=== PATIENT | female | born 1985 | race Caucasian/White ===

== ENCOUNTER → 2016-11-26 | Outpatient (CLI) | payer BC ==
[2016-11-26 16:53] LABS: CHCM 33.8; HCT 34.5 % (34.0-46.0); HDW 2.25; HGB 11.9 gm/dL (11.4-16.0); MCH 32.7 pg (25.0-35.0); MCHC 34.5 g/dL (31.0-37.0); Mean Platelet Volume 7.4; RBC 3.64 m/uL (3.80-5.40); RDW 12.7 % (11.5-15.5); WBC 9.3 k/uL (3.8-10.6)
[2016-11-26 17:24] LABS: Glucose 83 mg/dL (74-99); Non-African American GFR(MDRD) >60 (>60 ml/min/1.73 sqM)
[2016-11-26 17:53] LABS: Hepatitis B Surface Ag Index 0.07
--- NOTE | 2016-11-26 20:31 | US ---
EXAMINATION TYPE: US OB <= 14 wk fetus DATE OF EXAM: 11/26/2016 4:31 PM COMPARISON: NONE CLINICAL HISTORY: Z36 CONFIRM DD. EXAM PERFORMED: Transabdominal (TA) EXAM MEASUREMENTS: GESTATIONAL AGE / DATING Physician Established: not yet established Dates by LMP: (8 weeks/2 days) EDC: 07/06/17 Dates by First Scan: 1st scan today Dates by Current Scan for: (8 weeks/5 days) EDC: 07/03/17 MATERNAL ANATOMY Uterus: 11.7 x 5.1 x 8.0 Right Ovary: obscured by overlying bowel gas Left Ovary: 2.4 x 1.3 x 1.3 Post CDS / Adnexa: wnl Presence of free fluid: wnl GESTATION / SURVEY CRL: 2.0 (8 weeks/5 days) Yolk Sac (normal less than 6mm): 3mm Heart Rate: 150 bpm IUP: Viable IUP Date of LMP: 09/29/16 Beta HcG (if available): not available Viable IUP, dates above. IMPRESSION: Single viable intrauterine .
[2016-11-27 07:39] LABS: HIV-1/HIV-2 Ab Screen NONREAC (NON REAC)
== END | disposition home or self-care (01) ==
LOC: RADUSWWP 16:01
PROVIDERS: ATTEND Obstetrics & Gynecology
DX: Z36 Encounter for antenatal screening of mother (principal); Z3A.08 8 weeks gestation of pregnancy; R53.83 Other fatigue
CPT/HCPCS: 76801; 82565; 82947; 85027; 86762; 86780; 86850; 86900; 86901; 87340; 87389

== ENCOUNTER 2016-12-21 20:04 | Emergency (ER) | payer BC ==
[2016-12-21] MEDS ORDERED: ALBUTEROL NEBULIZED 2.5 MG/3 ML INHALATION STA (21:16)
[2016-12-21 21:58] LABS: Basophils % (A) 1 %; CH 32.6; Eosinophils # (A) 0.1 k/uL (0-0.7); Eosinophils % (A) 1 %; HCT 39.7 % (34.0-46.0); HDW 2.27; HGB 13.2 gm/dL (11.4-16.0); Luc # (Auto) 0.14; Luc % (Auto) 2; Lymphocytes # (A) 1.6 k/uL (1.0-4.8); Lymphocytes % (A) 18 %; MCH 32.1 pg (25.0-35.0); MCHC 33.3 g/dL (31.0-37.0); MCV 96.5 fL (80.0-100.0); Mean Platelet Volume 6.7; Monocytes # (A) 0.3 k/uL (0-1.0); Monocytes % (A) 4 %; Neutrophils # (A) 6.4 k/uL (1.3-7.7); Neutrophils % (A) 75 %; RBC 4.11 m/uL (3.80-5.40); RDW 13.5 % (11.5-15.5); WBC 8.5 k/uL (3.8-10.6); WBC (Perox) 8.94
[2016-12-21 22:03] LABS: Anion Gap 9 mmol/L; Blood Urea Nitrogen 11 mg/dL (7-17); Calcium 9.4 mg/dL (8.4-10.2); Carbon Dioxide 22 mmol/L (22-30); Chloride 106 mmol/L (98-107); Glucose 83 mg/dL (74-99); Non-African American GFR(MDRD) >60 (>60 ml/min/1.73 sqM); Potassium 3.8 mmol/L (3.5-5.1); Sodium 137 mmol/L (137-145)
[2016-12-21] MEDS ORDERED: LORazepam 1 MG TAB PO STA (22:14)
--- NOTE | 2016-12-21 22:28 | ED ---
SOB HPI - General Chief Complaint: Shortness of Breath Stated Complaint: ROMÁN, 12 weeks preg Time Seen by Provider: 12/21/16 21:07 Source: patient, RN notes reviewed Mode of arrival: ambulatory Limitations: no limitations - History of Present Illness Initial Comments: This is a 31-year-old female chief complaint of difficulty breathing for approximately one day. Patient is currently 12 weeks . Patient reports that she's been under a lot of stress lately. She states that she has quit smoking inserted easily nicotine patch. Patient states that shortly after using the nicotine patch today she felt as if she cannot get a full breath of air. Patient states that she has no history of asthma. She denies any chest pain. She denies any nausea or vomiting or fever. PAtient states that she feels anxious. - Related Data Home Medications Medication Instructions Recorded Confirmed Pnv with Ca,No.72/Iron/FA 1 tab PO DAILY 12/21/16 12/21/16 [ Plus Tablet] Previous Rx's Medication Instructions Recorded LORazepam [Ativan] 0.5 mg PO BID #6 tab 12/21/16 Allergies Allergy/AdvReac Type Severity Reaction Status Date / Time Sulfa (Sulfonamide Allergy Rash/Hives Verified 12/21/16 20:32 Antibiotics) Review of Systems ROS Statement: Those systems with pertinent positive or pertinent negative responses have been documented in the HPI. ROS Other: All systems not noted in ROS Statement are negative. Past Medical History Past Medical History: No Reported History History of Any Multi-Drug Resistant Organisms: None Reported Past Surgical History: Section Past Psychological History: No Psychological Hx Reported Smoking Status: Former smoker Past Alcohol Use History: None Reported Past Drug Use History: None Reported General Exam - General Exam Comments Initial Comments: Well-appearing 31-year-old female. No distress. Limitations: no limitations General appearance: alert, in no apparent distress Head exam: Present: atraumatic, normocephalic, normal inspection Eye exam: Present: normal appearance, PERRL, EOMI. Absent: scleral icterus, conjunctival injection, periorbital swelling ENT exam: Present: normal exam, mucous membranes moist Neck exam: Present: normal inspection. Absent: tenderness, meningismus, lymphadenopathy Respiratory exam: Present: normal lung sounds bilaterally. Absent: respiratory distress, wheezes, rales, rhonchi, stridor Cardiovascular Exam: Present: regular rate, normal rhythm, normal heart sounds. Absent: systolic murmur, diastolic murmur, rubs, gallop, clicks GI/Abdominal exam: Present: soft, normal bowel sounds. Absent: distended, tenderness, guarding, rebound, rigid Extremities exam: Present: normal inspection, full ROM, normal capillary refill. Absent: tenderness, pedal edema, joint swelling, calf tenderness Back exam: Present: normal inspection Neurological exam: Present: alert, oriented X3, CN II-XII intact Psychiatric exam: Present: normal affect, normal mood, anxious Skin exam: Present: warm, dry, intact, normal color. Absent: rash Course Vital Signs 12/21/16 12/21/16 12/21/16 20:29 21:57 22:07 Temperature 99.4 F Pulse Rate 91 91 91 Respiratory 20 Rate Blood Pressure 159/86 O2 Sat by Pulse 100 Oximetry 12/21/16 22:38 Temperature 98.2 F Pulse Rate 87 Respiratory 18 Rate Blood Pressure 106/68 O2 Sat by Pulse 100 Oximetry Medical Decision Making - Medical Decision Making This is a 31-year-old female chief complaint of difficulty breathing for approximately one day. Patient is currently 12 weeks . Patient reports that she's been under a lot of stress lately. She states that she has quit smoking inserted easily nicotine patch. Patient states that shortly after using the nicotine patch today she felt as if she cannot get a full breath of air. Patient states that she has no history of asthma. She denies any chest pain. She denies any nausea or vomiting or fever. PAtient states that she feels anxious. Patient lungs are CTA, no wheezing. PAtient does not appear in respiratory distress. Given albuterol breathing treatment with no relief. PAtient continues to report anxiety. Given .5 mg lorazepam and patient states that she is feeling somewhat better. Lab work reviewed and negative, negative D dimer. Discussed following up with PCP on Friday. Discussed can give her a few ativan for anxiety until she can follow up with PCP. Discussed addictive properties of the medication, only to be used as last resort. - Lab Data Result diagrams: 12/21/16 21:40 12/21/16 21:40 Lab Results 12/21/16 12/21/16 12/21/16 Range/Units 21:40 21:40 21:40 WBC 8.5 (3.8-10.6) k/uL RBC 4.11 (3.80-5.40) m/uL Hgb 13.2 (11.4-16.0) gm/dL Hct 39.7 (34.0-46.0) % MCV 96.5 (80.0-100.0) fL MCH 32.1 (25.0-35.0) pg MCHC 33.3 (31.0-37.0) g/dL RDW 13.5 (11.5-15.5) % Plt Count 304 (150-450) k/uL Neutrophils % 75 % Lymphocytes % 18 % Monocytes % 4 % Eosinophils % 1 % Basophils % 1 % Neutrophils # 6.4 (1.3-7.7) k/uL Lymphocytes # 1.6 (1.0-4.8) k/uL Monocytes # 0.3 (0-1.0) k/uL Eosinophils # 0.1 (0-0.7) k/uL Basophils # 0.0 (0-0.2) k/uL D-Dimer 0.41 (<0.60) mg/L FEU Sodium 137 (137-145) mmol/L Potassium 3.8 (3.5-5.1) mmol/L Chloride 106 (98-107) mmol/L Carbon Dioxide 22 (22-30) mmol/L Anion Gap 9 mmol/L BUN 11 (7-17) mg/dL Creatinine 0.49 L (0.52-1.04) mg/dL Est GFR (MDRD) Af Amer >60 (>60 ml/min/1.73 sqM) Est GFR (MDRD) Non-Af >60 (>60 ml/min/1.73 sqM) Glucose 83 (74-99) mg/dL Calcium 9.4 (8.4-10.2) mg/dL Disposition Clinical Impression: Anxiety, Shortness of breath due to Disposition: HOME SELF-CARE Condition: Good Instructions: Dyspnea (ED) Additional Instructions: Patient has follow-up with Dr. Palafox on Friday. Return to the emergency department if any alarming signs or symptoms occur. Prescriptions: LORazepam [Ativan] 0.5 mg PO BID #6 tab Referrals: Minal Palafox DO [Primary Care Provider] - 1-2 days Terence Hobbs MD [STAFF PHYSICIAN] - 1-2 days Time of Disposition: 22:58
[2016-12-21 22:39] VITALS: BP 106/68; PULSE 87; RESP 18; TEMP 98.2
== END 2016-12-21 23:10 | disposition home or self-care (01) ==
LOC: EC 20:04
DX: O99.89 Other specified diseases and conditions complicating pregnancy, childbirth and the puerperium (principal); R06.02 Shortness of breath; O99.341 Other mental disorders complicating pregnancy, first trimester; F41.9 Anxiety disorder, unspecified; Z3A.12 12 weeks gestation of pregnancy; Z87.891 Personal history of nicotine dependence; Z79.899 Other long term (current) drug therapy; Z88.2 Allergy status to sulfonamides
CPT/HCPCS: 36415; 80048; 85025; 85379; 94640; 99284

== ENCOUNTER → 2017-02-10 | Outpatient (CLI) | payer OTHER ==
--- NOTE | 2017-02-11 16:17 | US ---
EXAMINATION TYPE: US OB anatomy transabd DATE OF EXAM: 02/10/2017 COMPARISON: NONE HISTORY: O36.62X0 Large for dates Anatomy Scan TECHNIQUE: Transabdominal (TA) EXAM MEASUREMENTS: GESTATIONAL AGE / DATING Physician Established: (19 weeks/1 days) EDC: 07/06/17 Dates by LMP: (19 weeks/1 days) EDC: 07/06/17 Dates by First Scan: (19 weeks/4 days) EDC: 07/03/17 Dates by Current Scan for: (20 weeks/2 days) EDC: 06/28/2017 SURVEY IUP: Single PLACENTA: Anterior PREVIA: No previa YOLIS: 13.8 cm Normal CERVICAL LENGTH (transabdominal: norm > 3.0cm): 3.3 cm BIOMETRY PRESENTATION: Vertex BPD: 4.7 cm 20 weeks / 2 days HC: 17.9 cm 20 weeks / 3 days AC: 14.7 cm 20 weeks / 0 days FL: 3.2 cm 20 weeks / 0 days ESTIMATED WEIGHT IN GRAMS: 327 grams ESTIMATED WEIGHT IN LBS/OZS: 0 lbs. 12 oz. WEIGHT PERCENTAGE BASED ON ESTABLISHED DATE: 91 % HC/AC: 1.2 Normal FL/AC: 22 HEART RATE: 143 bpm RHYTHM: Normal ANATOMY SEEN (within normal limits): * Lateral Vent (< 1 cm) 0.7 cm * Cisterna Magna (< 1.1 cm) 0.3 cm * Nuchal Fold (< 0.6 cm) 0.3 cm * Cerebellum (varies with age) 2.0 cm Choroid Plexus (bilateral) Midline Falx Cavus Septi Pellucidi Four Chamber Heart Outflow tracts: LVOT/RVOT Stomach- Appeared prominent Situs Nose / Lips Diaphragm Kidneys (bilateral) Bladder Cord Insert Three Vessel Cord Longitudinal Spine Transverse Spine Arms (bilateral) Legs (bilateral) Single, viable IUP, Growth parameters appeared wnl/ Stomach prominent during exam, otherwise no abn ormality was visualized Impressions: 1. Single intrauterine gestation estimated at 20 weeks 2 days gestation based on current ultrasound m easurements. This would have a calculated EDC of 06/28/2017. Correlate this with her physician establ alvaro EDC of 07/06/2017. 2. Cardiac activity measures 143 bpm. 3. Note is made of some prominent stomach during the exam.
== END | disposition home or self-care (01) ==
LOC: RADUSWWP 15:34
PROVIDERS: ATTEND Obstetrics & Gynecology
DX: O36.62X0 Maternal care for excessive fetal growth, second trimester, not applicable or unspecified (principal); Z3A.19 19 weeks gestation of pregnancy
CPT/HCPCS: 76811

== ENCOUNTER → 2017-03-29 | Outpatient (CLI) | payer OTHER ==
[2017-03-29 11:39] LABS: CH 32.5; CHCM 33.2; HCT 36.5 % (34.0-46.0); HGB 12.2 gm/dL (11.4-16.0); MCHC 33.5 g/dL (31.0-37.0); MCV 98.5 fL (80.0-100.0); Mean Platelet Volume 7.7; RBC 3.71 m/uL (3.80-5.40); RDW 13.7 % (11.5-15.5); WBC 9.8 k/uL (3.8-10.6)
== END | disposition home or self-care (01) ==
LOC: LABWHC1 10:28
PROVIDERS: ATTEND Obstetrics & Gynecology
DX: Z34.92 Encounter for supervision of normal pregnancy, unspecified, second trimester (principal); Z3A.00 Weeks of gestation of pregnancy not specified
CPT/HCPCS: 36415; 82950; 85027

== ENCOUNTER → 2017-04-02 | Outpatient (CLI) | payer OTHER ==
[2017-04-02 11:56] LABS: Glucose 3 Hour, Gest 96 mg/dL
== END | disposition home or self-care (01) ==
LOC: LABWHC1 08:03
PROVIDERS: ATTEND Obstetrics & Gynecology
DX: O99.810 Abnormal glucose complicating pregnancy (principal); Z3A.00 Weeks of gestation of pregnancy not specified
CPT/HCPCS: 36415; 82951; 82952

== ENCOUNTER 2017-04-28 12:20 | Outpatient (CLI) | payer OTHER ==
[2017-04-28 13:13] VITALS: BP 113/76; PULSE 95; RESP 18; TEMP 98
[2017-04-28 13:32] LABS: Appearance,Urine Clear (Clear); Bilirubin,Urine Negative (Negative); Glucose,Urine (UA) Negative (Negative); Ketones,Urine Trace (Negative); Leukocyte Esterase,Urine Negative (Negative); Nitrite,Urine Negative (Negative); PH, Urine 6.5 (5.0-8.0); Protein,Urine Negative (Negative); Specific Gravity,Urine 1.017 (1.001-1.035); UA Billing (MACRO vs. MICRO) CHEM; Urobilinogen,Urine <2.0 mg/dL (<2.0)
--- NOTE | 2017-04-28 18:08 | P.MSEPDOC ---
Presenting Problems - Arrival Data Date of Arrival on Unit: 04/28/17 Time of Arrival on Unit: 12:20 Mode of Transport: Ambulatory - Complaint OB-Reason for Admission/Chief Complaint: Rule Out PROM Medical History - Information : 3 Para: 1 Term: 1 : 0 Abortions: Spontaneous or Elective: 1 Number of Living Children: 1 - Gestational Age Expected Date of Delivery: 07/06/17 Gestational Age by JOSE A (wks/days): 30 Weeks and 1 Days Review of Systems - Review of Systems Constitutional: No problems Breast: No problems ENT: No problems Cardiovascular: No problems Respiratory: No problems Gastrointestinal: No problems Genitourinary: Urgency, Increased frequency Musculoskeletal: No problems Neurological: Dizziness Skin: No problems Vital Signs - Temperature Temperature: 98.0 F Temperature Source: Oral - Pulse Pulse Oximetery Pulse Rate: 95 Pulse Assessment Method: Automatic Cuff - Respirations Respiratory Rate: 18 Oxygen Delivery Method: Room Air O2 Sat by Pulse Oximetry: 96 - Blood Pressure Right Arm Blood Pressure: 113/76 Blood Pressure Mean: 88 Blood Pressure Source: Automatic Cuff Medical Screen Scoring (Pre) - Cervical Exam Dilation: Exam Deferred Effacement: Exam Deferred - Uterine Contractions Frequency: N/A - Maternal Vital Signs Maternal Temperature: N/A Maternal Blood Pressure: N/A Signs of Preeclampsia: N/A Maternal Respirations: N/A - Maternal Trauma Maternal Trauma: N/A - Assessment Baseline FHR: 120 Heart Rate - NICHD Category: Category I (Normal) = 0 NST: Reactive Position: N/A Station: N/A - Total Score Total Score (Pre): 0 - Level of Risk Level of Risk: Low (0-5) Physician Notification (Pre) - Physician Notified Physician Notified Date: 04/28/17 Physician Notified Time: 13:12 Physician/Practitioner Notifed:: Dr Hobbs Spoke With: Dr Hobbs New Order Received: Yes - Notification Comment Comment: Send a U/A and culture, may discharge home, call with results. Amnisure results were negative Disposition - Disposition OB Disposition: Discharge to home Discharge Date: 04/28/17 Discharge Time: 13:12 I agree with the RN Medical Screening Exam: Yes Risk & Benefit of care provided described in d/c instruction: Yes Diagnosis: PELVIC AND PERINEAL PAIN
== END 2017-04-28 13:20 | disposition home or self-care (01) ==
LOC: FBPOP 12:20
PROVIDERS: ATTEND Obstetrics & Gynecology
DX: O99.89 Other specified diseases and conditions complicating pregnancy, childbirth and the puerperium (principal); R10.2 Pelvic and perineal pain; Z3A.30 30 weeks gestation of pregnancy
CPT/HCPCS: 81003; 84112; 87086; 99213

== ENCOUNTER 2017-06-13 10:27 | Outpatient (CLI) | payer OTHER ==
[2017-06-13 11:16] LABS: Appearance,Urine Cloudy (Clear); Bacteria,Urine Occasional /hpf; Bilirubin,Urine Negative (Negative); Calcium Oxalate Crystals,Urine Occasional /hpf; Glucose,Urine (UA) Negative (Negative); Ketones,Urine Negative (Negative); Leukocyte Esterase,Urine Small (Negative); Mucus,Urine Rare /hpf; Nitrite,Urine Negative (Negative); Particle Count 6403; Protein,Urine Trace (Negative); RBC,Urine 3 /hpf (0-5); Specific Gravity,Urine 1.017 (1.001-1.035); Squamous Epithelial Cell,Urine 4 /hpf (0-4); UA Billing (MACRO vs. MICRO) MICRO; WBC,Urine 6 /hpf (0-5)
[2017-06-13 11:19] VITALS: BP 118/69; PULSE 106; RESP 16; TEMP 96.6
--- NOTE | 2017-07-02 08:06 | P.MSEPDOC ---
Presenting Problems - Arrival Data Date of Arrival on Unit: 06/13/17 Time of Arrival on Unit: 10:31 Mode of Transport: Ambulatory - Complaint OB-Reason for Admission/Chief Complaint: Pain Comment: back pain cramping dizziness bladder pressure Medical History - Information : 3 Para: 1 Term: 1 : 0 Abortions: Spontaneous or Elective: 1 Number of Living Children: 1 - Gestational Age Gestational Age by JOSE A (wks/days): 36 Weeks and 5 Days - History Complications: Prior Review of Systems - Review of Systems Constitutional: No problems Breast: No problems ENT: No problems Cardiovascular: No problems Respiratory: No problems Gastrointestinal: No problems Genitourinary: No problems Musculoskeletal: No problems Neurological: No problems Skin: No problems Vital Signs - Temperature Temperature: 96.6 F Temperature Source: Temporal Artery Scan - Pulse Right Brachial Pulse Rate: 106 Pulse Assessment Method: Automatic Cuff - Respirations Respiratory Rate: 16 Oxygen Delivery Method: Room Air O2 Sat by Pulse Oximetry: 96 - Blood Pressure Right Arm Blood Pressure: 118/69 Blood Pressure Mean: 85 Blood Pressure Source: Automatic Cuff Medical Screen Scoring (Pre) - Cervical Exam Dilation: 0 cm = 0 Membranes: Intact - Uterine Contractions Frequency: > 5 minutes apart = 1 Duration: N/A Intensity: N/A - Maternal Vital Signs Maternal Temperature: N/A Maternal Blood Pressure: N/A Signs of Preeclampsia: N/A Maternal Respirations: N/A - Maternal Trauma Maternal Trauma: N/A - Assessment Baseline FHR: 130 Heart Rate - NICHD Category: Category I (Normal) = 0 NST: Reactive Position: N/A Station: N/A - Total Score Total Score (Pre): 1 - Level of Risk Level of Risk: N/A Medical Screen Scoring (Post) - Cervical Exam Dilation: 0 cm = 0 Membranes: Intact - Uterine Contractions Frequency: > 5 minutes apart = 1 Duration: N/A - Maternal Vital Signs Maternal Temperature: N/A Signs of Preeclampsia: N/A Maternal Respirations: N/A - Maternal Trauma Maternal Trauma: N/A - Assessment Heart Rate: 130 Heart Rate - NICHD Category: Category I (Normal) = 0 NST: Reactive Position: N/A Station: N/A - Total Score Total Score (Post): 1 - Post Treatment Level of Risk Post Treatment Level of Risk: Low (0-5) Physician Notification (Post) - Physician Notified Physician Notified Date: 06/13/17 Physician Notified Time: 11:30 Physician/Practitioner Notified:: Dr Robert Spoke With: Dr Robert New Order Received: Yes (urine culture) Disposition - Disposition OB Disposition: Discharge to home Discharge Date: 06/13/17 Discharge Time: 11:39 I agree with the RN Medical Screening Exam: Yes Risk & Benefit of care provided described in d/c instruction: Yes Diagnosis: PELVIC AND PERINEAL PAIN
== END 2017-06-13 11:55 | disposition home or self-care (01) ==
LOC: FBPOP 10:27
PROVIDERS: ATTEND Obstetrics & Gynecology
DX: O99.89 Other specified diseases and conditions complicating pregnancy, childbirth and the puerperium (principal); R10.2 Pelvic and perineal pain
CPT/HCPCS: 59025; 81001; 84112; 87086; 99213

== ENCOUNTER 2017-07-02 01:00 | Inpatient (IN) | payer OTHER ==
[2017-07-02] MEDS ORDERED: CITRIC ACID-SODIUM CITRATE 15 ML CUP PO ONE (01:21)
[2017-07-02] MEDS ORDERED: LACTATED RINGERS 1,000 ML IV ONE (01:21)
[2017-07-02] MEDS ORDERED: ceFAZolin 2 GM in SODIUM CHLORIDE 0.9% 100 ML IVPB ONE (01:24)
[2017-07-02 01:51] LABS: Basophils % (A) 0 %; CH 31.7; CHCM 33.5; Eosinophils # (A) 0.2 k/uL (0-0.7); Eosinophils % (A) 1 %; HDW 2.42; HGB 13.1 gm/dL (11.4-16.0); Luc # (Auto) 0.14; Luc % (Auto) 1; Lymphocytes # (A) 1.6 k/uL (1.0-4.8); Lymphocytes % (A) 16 %; MCH 31.1 pg (25.0-35.0); MCHC 32.6 g/dL (31.0-37.0); MCV 95.3 fL (80.0-100.0); Mean Platelet Volume 8.8; Monocytes # (A) 0.5 k/uL (0-1.0); Monocytes % (A) 5 %; Neutrophils # (A) 7.8 k/uL (1.3-7.7); Neutrophils % (A) 76 %; RDW 14.3 % (11.5-15.5); WBC 10.2 k/uL (3.8-10.6)
[2017-07-02] MEDS ORDERED: MORPHINE SULFATE (PF) 0.3 MG/0.3 ML SYR ONE (02:05)
[2017-07-02] MEDS ORDERED: ONDANSETRON 4 MG/2 ML VIAL ONE (02:05)
[2017-07-02] MEDS ORDERED: PHENYLEPHRINE-0.9% NACL SYG 1 MG/10 ML SYRINGE ONE (02:05)
[2017-07-02] MEDS ORDERED: OXYTOCIN 10 UNIT/ML 1 ML VIAL ONE (02:05)
[2017-07-02] MEDS ORDERED: NALBUPHINE 10 MG/ML AMPUL ONE (02:05)
[2017-07-02] MEDS ORDERED: FAMOTIDINE 20 MG/2 ML VIAL ONE (02:05)
[2017-07-02] MEDS ORDERED: KETOROLAC 30 MG/ML 1 ML VIAL ONE (02:05)
[2017-07-02] MEDS ORDERED: diphenhydrAMINE 50 MG/ML 1 ML VIAL IVP PRN ×3 (02:43→02:52)
[2017-07-02] MEDS ORDERED: diphenhydrAMINE 50 MG CAP PO PRN (02:43)
[2017-07-02] MEDS ORDERED: ACETAMINOPHEN TAB 325 MG TAB PO PRN (02:43)
[2017-07-02] MEDS ORDERED: NALOXONE 0.4 MG/ML 1 ML VIAL IV PRN ×2 (02:43→02:52)
[2017-07-02] MEDS ORDERED: ONDANSETRON 4 MG/2 ML VIAL IVP PRN ×2 (02:43→02:52)
[2017-07-02] MEDS ORDERED: diphenhydrAMINE 25 MG CAP PO PRN (02:43)
[2017-07-02] MEDS ORDERED: ZOLPIDEM 5 MG TAB PO PRN (02:43)
[2017-07-02] MEDS ORDERED: KETOROLAC 30 MG/ML 1 ML VIAL IVP PRN ×2 (02:43→02:52)
[2017-07-02] MEDS ORDERED: Acetaminophen-Codeine 300-30mg TAB PO PRN (02:43)
[2017-07-02] MEDS ORDERED: METOCLOPRAMIDE 5 MG/ML 2 ML VIAL IVP PRN (02:43)
[2017-07-02] MEDS ORDERED: SIMETHICONE 80 MG CHEWABLE PO PRN (02:43)
--- NOTE | 2017-07-02 02:46 | P.HPOB ---
History of Present Illness H&P Date: 07/02/17 Chief Complaint: Intrauterine at 39 weeks: Prior section: Active labor Patient is a 32-year-old at 39 weeks 3 days gestation arrives following rupture of membranes with contractions. She is dilated to 3-4 cm in and is in active labor. She is having contractions every approximately 3 minutes. Due to above and scheduled prior we'll plan repeat this morning. Her course has been essentially unremarkable and she is feeling well at this time her vital signs are stable and afebrile. Heart regular, lungs clear, extremities without pain. Osteopathic exams unremarkable. Pertinent labs could A+ blood type Rh antibody was negative, rubella immune, hepatitis B surface antigen and RPR were negative. She is scheduled for a repeat low transverse section with bilateral partial salpingectomy for family planning for permanent sterilization. Risks/benefits and alternatives were discussed with the patient by Dr. Prabhakar previously and reviewed by me. Past Medical History Past Medical History: No Reported History History of Any Multi-Drug Resistant Organisms: None Reported Past Surgical History: Section Smoking Status: Former smoker Medications and Allergies Home Medications Medication Instructions Recorded Confirmed Type Calcium Carbonate [Tums] 2,000 mg PO DIRECTED PRN MDD 06/26/17 07/02/17 History takes 2-4 tabs Pnv No.95/Ferrous Fum/Folic AC 1 each PO DAILY 06/26/17 07/02/17 History [ Multivitamin Tablet] Allergies Allergy/AdvReac Type Severity Reaction Status Date / Time Sulfa (Sulfonamide Allergy muscle Verified 07/02/17 01:12 Antibiotics) cramps Exam Osteopathic Statement: *. No significant issues noted on an osteopathic structural exam other than those noted in the History and Physical/Consult. - Vital Signs Vital signs: Intake and Output 07/01/17 07/01/17 07/02/17 14:59 22:59 06:59 Other: Weight 73.482 kg Patient Weight 07/02/17 06:59 Weight 73.482 kg Results Result Diagrams: 07/02/17 01:35 Abnormal Lab Results - Last 24 Hours (Table) 07/02/17 Range/Units 01:35 Neutrophils # 7.8 H (1.3-7.7) k/uL
[2017-07-02] MEDS ORDERED: MORPHINE SULFATE 4 MG/ML SYRINGE IVP PRN (02:52)
--- NOTE | 2017-07-02 02:52 | P.OP ---
Date of Procedure: 07/02/17 Preoperative Diagnosis: Intrauterine at 39 weeks: Family planning: Prior section: Active labor Postoperative Diagnosis: Same Procedure(s) Performed: Repeat low transverse section with bilateral partial salpingectomy. Anesthesia: spinal Surgeon: Dmitry Ibarra Reverse Engineer #1: Meghan Crawford Estimated Blood Loss (ml): 500 IV fluids (ml): 800 Urine output (ml): 200 Pathology: other (placenta) Condition: stable Disposition: floor Operative Findings: Male scores of 9 and 9 at one and 5 minutes respectively and weight of 9 lbs. 9 oz. Description of Procedure: Patient was taken to the operating suite where a spinal anesthetic was found be adequate. She was prepped and draped in the normal sterile fashion and placed in dorsal supine position with leftward tilt. Initially a Pfannenstiel skin incision was made and this incision was then carried through to the underlying layer of the fascia with a second knife. Fascia was then nicked in the midline and this opening was extended laterally with Restrepo scissors. Superior and inferior aspect of this incision were then grasped tented up and bluntly and sharply dissected off the rectus muscles. Muscles were then divided in the midline and blunt dissection through the peritoneum was made. This opening was then extended superiorly and inferiorly with good visualization of both bowel bladder. Bladder blade was then placed bladder flap was identified and entered with Metzenbaum scissors and this opening was carried across face the uterus with Metzenbaum scissors and a bladder flap was digitally created. Knife was then used to incise uterus was fully developed through with a hemostat and extended bluntly. Head was then H medically delivered mouth nares bulb suctioned anterior posterior shoulders delivered with gentle downward and upper traction followed by the remainder the baby. Umbilical cord was then clamped cut usual fashion an nursery personnel was present to assume care. Placenta was then delivered intact and Pitocin was added to the IV. Uterus was then exteriorized cleared of clots and debris and closed in 1 layer with 0 Vicryl suture. Once excellent hemostasis was obtained attention was turned to the fallopian tubes where both the right and left tube had a hemostat grasped 2 cm from uterine cornu and a window was created in the mesosalpinx. 2 proximal and 2 distal 2-0 silk sutures were then used to occlude the fallopian tubes and intervening segments were excised and tips were cauterized. Once this was accomplished blood and debris was suctioned from the posterior cul-de-sac and the uterus was reinserted into the abdomen. Peritoneal layer was then reapproximated with 0 Vicryl fascial layer was closed with 0 Vicryl one layer of 3-0 Vicryl was placed in deep subcuticular tissues reapproximate the skin and then the skin was closed with marifer. Sponge, lap, needle counts were all correct 2. Patient was then taken to the recovery room in stable and satisfactory condition.
[2017-07-02] MEDS: LACTATED RINGERS 1,000 ML IV SCH ×2 (03:54→12:19)
--- NOTE | 2017-07-02 08:29 | P.MSEPDOC ---
Presenting Problems - Arrival Data Date of Arrival on Unit: 07/02/17 Time of Arrival on Unit: 01:30 Mode of Transport: Bed - Complaint OB-Reason for Admission/Chief Complaint: Rule Out SROM Comment: SROM @ 0030 Medical History - Information : 3 Para: 1 Term: 1 : 0 Abortions: Spontaneous or Elective: 1 Number of Living Children: 1 - Gestational Age Gestational Age by JOSE A (wks/days): 39 Weeks and 3 Days Review of Systems - Review of Systems Constitutional: No problems Breast: No problems ENT: No problems Cardiovascular: No problems Respiratory: No problems Gastrointestinal: No problems Genitourinary: No problems Musculoskeletal: No problems Neurological: No problems Skin: No problems Vital Signs - Temperature Temperature: 97.5 F Temperature Source: Temporal Artery Scan - Pulse Left Brachial Pulse Rate: 81 Pulse Assessment Method: Automatic Cuff - Respirations Respiratory Rate: 16 Oxygen Delivery Method: Room Air O2 Sat by Pulse Oximetry: 96 - Blood Pressure Left Arm Blood Pressure: 105/63 Blood Pressure Mean: 77 Blood Pressure Source: Automatic Cuff Medical Screen Scoring (Pre) - Cervical Exam Dilation: 1-3 cm = 1 Effacement: More than 50% = 2 Membranes: Ruptured = 3 - Uterine Contractions Frequency: Scheduled / = 6 Duration: > 40 seconds = 2 Intensity: N/A - Maternal Vital Signs Maternal Temperature: N/A Maternal Blood Pressure: N/A Signs of Preeclampsia: N/A - Maternal Trauma Maternal Trauma: N/A - Assessment Baseline FHR: 115 Heart Rate - NICHD Category: Category I (Normal) = 0 NST: Reactive Position: N/A - Total Score Total Score (Pre): 14 - Level of Risk Level of Risk: High (10+) Physician Notification (Pre) - Physician Notified Physician Notified Date: 07/02/17 Physician Notified Time: 01:20 Physician/Practitioner Notifed:: Dr. Ibarra Spoke With: Dr. Ibarra New Order Received: Yes Disposition - Disposition OB Disposition: Admit, LDRP Suite I agree with the RN Medical Screening Exam: Yes Risk & Benefit of care provided described in d/c instruction: Yes Diagnosis: FULL-TERM JONATAN ROM, UNSP TIME BETW RUPTURE AND ONSET LABOR
[2017-07-02] MEDS: SENNOSIDES-DOCUSATE SODIUM 1 EACH TAB PO SCH ×2 (09:07→20:20)
--- NOTE | 2017-07-03 06:31 | P.PNOBGPC ---
Subjective - Subjective Patient reports: Reports appetite normal, Reports voiding normally, Reports pain well controlled, Reports ambulating normally : doing well Objective - Vital Signs Latest vital signs: Vital Signs Temp Pulse Resp BP BP Pulse Ox 07/03/17 04:00 98.7 F 75 18 102/56 07/03/17 00:00 98.1 F 78 18 07/02/17 20:00 97.8 F 80 18 99/58 07/02/17 18:21 16 07/02/17 17:00 16 07/02/17 16:00 98 F 75 14 100/67 07/02/17 15:00 16 07/02/17 13:00 16 96 07/02/17 12:00 98 F 73 16 115/70 96 07/02/17 11:00 16 07/02/17 09:00 16 95 07/02/17 08:29 97.5 F L 81 16 105/63 96 07/02/17 08:00 98.0 F 75 16 111/75 07/02/17 07:00 16 Intake and Output 07/02/17 07/02/17 07/03/17 14:59 22:59 06:59 Intake Total 1000 Output Total 900 1000 Balance 100 -1000 Intake: IV 1000 Lactated Ringers 1,000 ml 1000 @ 125 mls/hr IV .Q8H [facility] Rx#:[id number] Output: Urine 900 1000 Uretheral (Berger) 450 Other: Voiding Method Indwelling Catheter Indwelling Catheter # Voids 2 - Exam Lungs: bilateral: normal Chest: Normal S1, Normal S2 Extremities: Present: normal Abdomen: Present: normal appearance, soft. Absent: distention, tenderness Incision: Present: normal, dry, intact Uterus: Present: normal, firm Assessment and Plan (1) delivery delivered Narrative/Plan: Post operative day #1. Patient is resting without complaints. Vital signs are stable and she is afebrile. Uterus is firm nontender and her incision is intact and dry. CBC is pending at time of this dictation. My impression this is a normal postoperative course. Plan is to continue routine care, check a CBC, allow the patient to shower, and most likely discharge home tomorrow. Current Visit: Yes Status: Acute Code(s): O82 - ENCOUNTER FOR DELIVERY WITHOUT INDICATION SNOMED Code(s): 310208257
[2017-07-03 07:29] LABS: Basophils % (A) 0 %; CH 32.6; CHCM 33.4; Eosinophils # (A) 0.1 k/uL (0-0.7); Eosinophils % (A) 1 %; HCT 35.3 % (34.0-46.0); HDW 2.49; HGB 11.4 gm/dL (11.4-16.0); Luc # (Auto) 0.11; Luc % (Auto) 1; Lymphocytes # (A) 1.4 k/uL (1.0-4.8); Lymphocytes % (A) 13 %; MCH 31.9 pg (25.0-35.0); MCHC 32.4 g/dL (31.0-37.0); MCV 98.2 fL (80.0-100.0); Mean Platelet Volume 8.9; Monocytes # (A) 0.5 k/uL (0-1.0); Monocytes % (A) 4 %; Neutrophils # (A) 8.8 k/uL (1.3-7.7); Neutrophils % (A) 80 %; RBC 3.59 m/uL (3.80-5.40); RDW 13.5 % (11.5-15.5); WBC (Perox) 10.89
[2017-07-03] MEDS: SENNOSIDES-DOCUSATE SODIUM 1 EACH TAB PO SCH ×2 (09:41→20:22)
[2017-07-03] MEDS: IBUPROFEN 600 MG TAB PO PRN ×2 (09:41→15:28)
--- NOTE | 2017-07-03 09:48 | P.PN ---
Progress Note - Text Progress Note Date: 07/03/17 32-year-old female status post with spinal Duramorph patient sitting in bed comfortable is no complaints no headache no itching no nausea no vomiting
[2017-07-03] MEDS: Acetaminophen-Codeine 300-30mg TAB PO PRN ×2 (11:31→20:56)
[2017-07-04] MEDS: IBUPROFEN 600 MG TAB PO PRN ×2 (03:17→08:35)
[2017-07-04] MEDS ORDERED: DIPH,PERTUS(ACELL)TETVAC-LF 0.5 ML VIAL IM ONE (05:48)
--- NOTE | 2017-07-04 06:07 | P.PNOBGPC ---
Subjective - Subjective Patient reports: Reports appetite normal, Reports voiding normally, Reports pain well controlled, Reports ambulating normally : doing well Objective - Vital Signs Latest vital signs: Vital Signs Temp Pulse Resp BP Pulse Ox 07/04/17 00:00 98.2 F 68 18 117/40 07/03/17 15:18 97.8 F 83 18 107/60 97 07/03/17 09:00 98.3 F 82 16 120/64 98 Intake and Output 07/03/17 07/03/17 07/04/17 14:59 22:59 06:59 Other: Voiding Method Indwelling Catheter - Exam Lungs: bilateral: normal Chest: Normal S1, Normal S2 Extremities: Present: normal Abdomen: Present: normal appearance, soft. Absent: distention, tenderness Incision: Present: normal, dry, intact Uterus: Present: normal, firm - Labs Labs: Abnormal Lab Results - Last 24 Hours (Table) 07/03/17 Range/Units 07:18 WBC 11.0 H (3.8-10.6) k/uL RBC 3.59 L (3.80-5.40) m/uL Neutrophils # 8.8 H (1.3-7.7) k/uL Assessment and Plan Assessment: Post operative day #2. Patient is resting without complaints. Vital signs are stable and she is afebrile. Her incision is intact and dry. Patient's ambulating and urinating without difficulty and tolerating regular diet. Patient wishes to go home. My impression this is a normal postoperative course. Plan is to continue routine postoperative care discharge home later today. (1) delivery delivered Current Visit: Yes Status: Acute Code(s): O82 - ENCOUNTER FOR DELIVERY WITHOUT INDICATION SNOMED Code(s): 847483002
--- NOTE | 2017-07-04 06:12 | P.DS ---
Providers Date of admission: 07/02/17 01:34 Expected date of discharge: 07/04/17 Attending physician: Terence Hobbs Primary care physician: Stated None - Discharge Diagnosis(es) (1) delivery delivered Current Visit: Yes Status: Acute Hospital Course: Please see dictated H&P for intimate details of this patient's admission. Brief summary this is a pleasant 32-year-old 3 para 1 female 39-3/7 weeks gestation with a scheduled repeat section who presented in labor. Patient underwent a repeat low transverse section and tubal ligation. Please see dictated operative note. Postoperative and 2 patient's felt be stable for discharge home follow up with me in 1 week for an incision check. Procedures: Repeat low transverse section and tubal ligation Patient Condition at Discharge: Good Plan - Discharge Summary New Discharge Prescriptions: New Acetaminophen-Codeine 300-30mg [Tylenol w/codeine #3] 1 - 2 each PO Q4HR PRN #30 tab PRN Reason: Mild Pain Ibuprofen [Motrin] 600 mg PO Q6HR PRN #40 tab PRN Reason: Mild Pain Or Fever >= 100.5 No Action Pnv No.95/Ferrous Fum/Folic AC [ Multivitamin Tablet] 1 each PO DAILY Calcium Carbonate [Tums] 2,000 mg PO DIRECTED PRN MDD takes 2-4 tabs PRN Reason: Heartburn Discharge Medication List Calcium Carbonate [Tums] 2,000 mg PO DIRECTED PRN MDD takes 2-4 tabs [History] Pnv No.95/Ferrous Fum/Folic AC [ Multivitamin Tablet] 1 each PO DAILY [History] Acetaminophen-Codeine 300-30mg [Tylenol w/codeine #3] 1 - 2 each PO Q4HR PRN # 30 tab 07/04/17 [Rx] Ibuprofen [Motrin] 600 mg PO Q6HR PRN #40 tab 07/04/17 [Rx] Follow up Appointment(s)/Referral(s): Terence Hobbs MD [STAFF PHYSICIAN] - 08/14/17 9:45 am (Please see me in 1 week for an incision check.) Patient Instructions/Handouts: (DC) Activity/Diet/Wound Care/Special Instructions: No heavy lifting or intercourse for 6 weeks. Please call if any fever, chills, excessive vaginal bleeding, and/or abdominal pain. Discharge Disposition: HOME SELF-CARE
[2017-07-04] MEDS: SENNOSIDES-DOCUSATE SODIUM 1 EACH TAB PO SCH (08:36)
[2017-07-04 08:42] VITALS: BP 128/76; PULSE 80; RESP 16; TEMP 98
== END 2017-07-04 10:40 | disposition home or self-care (01) | DRG 766 ==
LOC: FBPOP 01:00 → 4FBP 01:34
PROVIDERS: ADMIT Obstetrics & Gynecology; ATTEND Obstetrics & Gynecology
PROC: 10D00Z1 Extraction of Products of Conception, Low, Open Approach (ICD-10-PCS; principal; 2017-07-02 01:40)
PROC: 0UB70ZZ Excision of Bilateral Fallopian Tubes, Open Approach (ICD-10-PCS; principal; 2017-07-02 01:40)
DX: O34.211 Maternal care for low transverse scar from previous cesarean delivery (principal); Z88.2 Allergy status to sulfonamides; Z37.0 Single live birth; Z87.891 Personal history of nicotine dependence; Z3A.39 39 weeks gestation of pregnancy; Z30.2 Encounter for sterilization
CPT/HCPCS: 59025; 85025; 86850; 86900; 86901; 88302; 88307; 90715; 99213

== ENCOUNTER 2018-12-22 09:31 | Emergency (ER) | payer BC, OTHER ==
[2018-12-22] MEDS ORDERED: ONDANSETRON 4 MG/2 ML VIAL IVP STA ×2 (10:09→11:03)
[2018-12-22] MEDS ORDERED: SODIUM CHLORIDE 0.9% 1,000 ML IV STA (10:09)
--- NOTE | 2018-12-22 10:15 | ED ---
General Adult HPI - General Chief complaint: Abdominal Pain Stated complaint: LRQ PAIN Time Seen by Provider: 12/22/18 09:43 Source: patient, RN notes reviewed Mode of arrival: wheelchair Limitations: no limitations - History of Present Illness Initial comments: Patient 33-year-old female presented to the emergency room today with chief complaint of abdominal pain with nausea vomiting. Patient does admit that symptoms started approximately 8:30. She states that she feels okay when she first woke up. She states that she's had a few loose bowel movements. States been very soft. No signs of blood. Patient does not that she's had some nausea vomiting and some pain on the right side of the abdomen. She states pain is coming and going. Patient denies any other complaints or symptoms currently. Patient denies any recent fever, chills, shortness of breath, chest pain, back pain, numbness or tingling, headaches or visual changes, or any other complaints. - Related Data Home Medications Medication Instructions Recorded Confirmed Escitalopram [Lexapro] 10 mg PO DAILY 12/22/18 12/22/18 Ibuprofen [Motrin Ib] 600 mg PO Q6H PRN 12/22/18 12/22/18 Previous Rx's Medication Instructions Recorded Ondansetron Odt [Zofran ODT] 4 mg PO Q8HR PRN #20 tab 12/22/18 Allergies Allergy/AdvReac Type Severity Reaction Status Date / Time Sulfa (Sulfonamide Allergy muscle Verified 12/22/18 09:54 Antibiotics) cramps Review of Systems ROS Statement: Those systems with pertinent positive or pertinent negative responses have been documented in the HPI. ROS Other: All systems not noted in ROS Statement are negative. Past Medical History Past Medical History: No Reported History History of Any Multi-Drug Resistant Organisms: None Reported Past Surgical History: Section Additional Past Surgical History / Comment(s): laprocopy and cyctoscopy Past Anesthesia/Blood Transfusion Reactions: No Reported Reaction Past Psychological History: Anxiety, Depression Smoking Status: Current every day smoker Past Alcohol Use History: None Reported Past Drug Use History: None Reported - Past Family History Mother Family Medical History: No Reported History General Exam - General Exam Comments Initial Comments: General: The patient is awake and alert, in no distress, and does not appear acutely ill. Eye: Pupils are equal, round and reactive to light, extra-ocular movements are intact. No nystagmus. There is normal conjunctiva bilaterally. No signs of icterus. Ears, nose, mouth and throat: There are moist mucous membranes and no oral lesions. Neck: The neck is supple, there is no tenderness or JVD. Cardiovascular: There is a regular rate and rhythm. No murmur, rub or gallop is appreciated. Respiratory: Lungs are clear to auscultation, respirations are non-labored, breath sounds are equal. No wheezes, stridor, rales, or rhonchi. Gastrointestinal: Soft on palpation. Patient does have mild tenderness right l ower quadrant. No rebound, guarding or CVA tenderness. Musculoskeletal: Normal ROM, no tenderness. Strength 5/5. Sensation intact. Pulses equal bilaterally 2+. Neurological: A&O x 3. CN II-XII intact, There are no obvious motor or sensory deficits. Coordination appears grossly intact. Speech is normal. Skin: Skin is warm and dry and no rashes or lesions are noted. Psychiatric: Cooperative, appropriate mood & affect, normal judgment. Limitations: no limitations Course Vital Signs 12/22/18 12/22/18 12/22/18 09:38 10:14 11:30 Temperature 98.2 F Pulse Rate 73 59 L Respiratory 18 16 Rate Blood Pressure 157/109 137/94 127/82 O2 Sat by Pulse 99 99 100 Oximetry Medical Decision Making - Medical Decision Making Patient labs been reviewed are unremarkable. She is resting comfortable. Patient's ultrasound is shows no inflammation around the right lower quadrant. Patient has minimal tenderness at this time. There is no fever. Concern for appendicitis is low. Signs and symptoms were discussed with the patient. She is advised that if symptoms increase or worsen. Testing may be a CT. The risk and benefits were discussed. Social feeling comfortable to be discharged home and states she'll follow-up the family doctor or return to emergency room symptoms increase worsen. Patient's pelvic ultrasound does show some nabothian cyst also concern for pelvic congestion syndrome. His results were discussed with the patient. She is advised following up with [facility]. Patient will be given nausea medication for symptoms and discharged home. She is advised return for any other concerns. Patient and family member about sinus infection in agreement with plan. - Lab Data Result diagrams: 12/22/18 10:12 12/22/18 10:12 Lab Results 12/22/18 12/22/18 12/22/18 Range/Units 10:12 10:12 10:12 WBC 6.9 (3.8-10.6) k/uL RBC 4.26 (3.80-5.40) m/uL Hgb 13.8 (11.4-16.0) gm/dL Hct 40.9 (34.0-46.0) % MCV 96.0 (80.0-100.0) fL MCH 32.4 (25.0-35.0) pg MCHC 33.7 (31.0-37.0) g/dL RDW 12.9 (11.5-15.5) % Plt Count 331 (150-450) k/uL Neutrophils % 84 % Lymphocytes % 10 % Monocytes % 4 % Eosinophils % 1 % Basophils % 0 % Neutrophils # 5.8 (1.3-7.7) k/uL Lymphocytes # 0.7 L (1.0-4.8) k/uL Monocytes # 0.3 (0-1.0) k/uL Eosinophils # 0.1 (0-0.7) k/uL Basophils # 0.0 (0-0.2) k/uL Sodium 140 (137-145) mmol/L Potassium 4.2 (3.5-5.1) mmol/L Chloride 103 (98-107) mmol/L Carbon Dioxide 29 (22-30) mmol/L Anion Gap 8 mmol/L BUN 15 (7-17) mg/dL Creatinine 0.59 (0.52-1.04) mg/dL Est GFR (CKD-EPI)AfAm >90 (>60 ml/min/1.73 sqM) Est GFR (CKD-EPI)NonAf >90 (>60 ml/min/1.73 sqM) Glucose 80 (74-99) mg/dL Calcium 9.6 (8.4-10.2) mg/dL Total Bilirubin 0.4 (0.2-1.3) mg/dL AST 16 (14-36) U/L ALT 30 (9-52) U/L Alkaline Phosphatase 52 (38-126) U/L Total Protein 7.1 (6.3-8.2) g/dL Albumin 4.4 (3.5-5.0) g/dL Amylase 38 (30-110) U/L Lipase 85 (23-300) U/L Urine Color Urine Appearance (Clear) Urine pH (5.0-8.0) Ur Specific [place] (1.001-1.035) Urine Protein (Negative) Urine Glucose (UA) (Negative) Urine Ketones (Negative) Urine Blood (Negative) Urine Nitrite (Negative) Urine Bilirubin (Negative) Urine Urobilinogen (<2.0) mg/dL Ur Leukocyte Esterase (Negative) Urine RBC (0-5) /hpf Urine WBC (0-5) /hpf Ur Squamous Epith Cells (0-4) /hpf Urine Bacteria (None) /hpf Hyaline Casts (0-2) /lpf Urine Mucus (None) /hpf Urine HCG, Qual Not Detected (Not Detectd) 12/22/18 Range/Units 10:12 WBC (3.8-10.6) k/uL RBC (3.80-5.40) m/uL Hgb (11.4-16.0) gm/dL Hct (34.0-46.0) % MCV (80.0-100.0) fL MCH (25.0-35.0) pg MCHC (31.0-37.0) g/dL RDW (11.5-15.5) % Plt Count (150-450) k/uL Neutrophils % % Lymphocytes % % Monocytes % % Eosinophils % % Basophils % % Neutrophils # (1.3-7.7) k/uL Lymphocytes # (1.0-4.8) k/uL Monocytes # (0-1.0) k/uL Eosinophils # (0-0.7) k/uL Basophils # (0-0.2) k/uL Sodium (137-145) mmol/L Potassium (3.5-5.1) mmol/L Chloride (98-107) mmol/L Carbon Dioxide (22-30) mmol/L Anion Gap mmol/L BUN (7-17) mg/dL Creatinine (0.52-1.04) mg/dL Est GFR (CKD-EPI)AfAm (>60 ml/min/1.73 sqM) Est GFR (CKD-EPI)NonAf (>60 ml/min/1.73 sqM) Glucose (74-99) mg/dL Calcium (8.4-10.2) mg/dL Total Bilirubin (0.2-1.3) mg/dL AST (14-36) U/L ALT (9-52) U/L Alkaline Phosphatase (38-126) U/L Total Protein (6.3-8.2) g/dL Albumin (3.5-5.0) g/dL Amylase (30-110) U/L Lipase (23-300) U/L Urine Color Yellow Urine Appearance Clear (Clear) Urine pH 5.5 (5.0-8.0) Ur Specific [place] 1.020 (1.001-1.035) Urine Protein Negative (Negative) Urine Glucose (UA) Negative (Negative) Urine Ketones Negative (Negative) Urine Blood Moderate H (Negative) Urine Nitrite Negative (Negative) Urine Bilirubin Negative (Negative) Urine Urobilinogen <2.0 (<2.0) mg/dL Ur Leukocyte Esterase Trace H (Negative) Urine RBC 80 H (0-5) /hpf Urine WBC 5 (0-5) /hpf Ur Squamous Epith Cells 4 (0-4) /hpf Urine Bacteria Rare H (None) /hpf Hyaline Casts 4 H (0-2) /lpf Urine Mucus Occasional H (None) /hpf Urine HCG, Qual (Not Detectd) Disposition Clinical Impression: Nausea & vomiting, Abdominal pain Disposition: HOME SELF-CARE Condition: Poor Instructions (If sedation given, give patient instructions): Abdominal Pain (ED) Additional Instructions: Please use medication as discussed. Please follow-up with [facility]/family doctor in the next 2 days of symptoms have not improved. Please return to emergency room if the symptoms increase or worsen or for any other concerns. Prescriptions: Ondansetron Odt [Zofran ODT] 4 mg PO Q8HR PRN #20 tab PRN Reason: Nausea Is patient prescribed a controlled substance at d/c from ED?: No Referrals: Lizzette Canales DO [Primary Care Provider] - 1-2 days Time of Disposition: 13:40
[2018-12-22 10:29] LABS: Basophils % (A) 0 %; Eosinophils # (A) 0.1 k/uL (0-0.7); Eosinophils % (A) 1 %; HCT 40.9 % (34.0-46.0); HGB 13.8 gm/dL (11.4-16.0); Lymphocytes # (A) 0.7 k/uL (1.0-4.8); Lymphocytes % (A) 10 %; MCH 32.4 pg (25.0-35.0); MCHC 33.7 g/dL (31.0-37.0); Monocytes # (A) 0.3 k/uL (0-1.0); Monocytes % (A) 4 %; Neutrophils # (A) 5.8 k/uL (1.3-7.7); Neutrophils % (A) 84 %; Platelet Count 331 k/uL (150-450); RBC 4.26 m/uL (3.80-5.40); RDW 12.9 % (11.5-15.5); WBC 6.9 k/uL (3.8-10.6)
[2018-12-22 10:34] LABS: Appearance,Urine Clear (Clear); Bacteria,Urine Rare /hpf; Bilirubin,Urine Negative (Negative); Blood,Urine Moderate (Negative); Color,Urine Yellow; Glucose,Urine (UA) Negative (Negative); Hyaline Casts,Urine 4 /lpf (0-2); Ketones,Urine Negative (Negative); Leukocyte Esterase,Urine Trace (Negative); Mucus,Urine Occasional /hpf; Nitrite,Urine Negative (Negative); PH, Urine 5.5 (5.0-8.0); Protein,Urine Negative (Negative); RBC,Urine 80 /hpf (0-5); Squamous Epithelial Cell,Urine 4 /hpf (0-4); Urobilinogen,Urine <2.0 mg/dL (<2.0); WBC,Urine 5 /hpf (0-5)
[2018-12-22 10:47] LABS: ALT 30 U/L (9-52); AST 16 U/L (14-36); Albumin 4.4 g/dL (3.5-5.0); Alkaline Phosphatase 52 U/L (38-126); Amylase 38 U/L (30-110); Anion Gap 8 mmol/L; Blood Urea Nitrogen 15 mg/dL (7-17); Calcium 9.6 mg/dL (8.4-10.2); Carbon Dioxide 29 mmol/L (22-30); Chloride 103 mmol/L (98-107); Glucose 80 mg/dL (74-99); Lipase 85 U/L (23-300); Potassium 4.2 mmol/L (3.5-5.1); Sodium 140 mmol/L (137-145); Total Bilirubin 0.4 mg/dL (0.2-1.3); Total Protein 7.1 g/dL (6.3-8.2)
[2018-12-22] MEDS ORDERED: KETOROLAC 30 MG/ML 1 ML VIAL IVP STA (11:03)
[2018-12-22 11:32] VITALS: RESP 16
--- NOTE | 2018-12-22 13:11 | US ---
EXAMINATION TYPE: US transvaginal plus Dopplers DATE OF EXAM: 12/22/2018 COMPARISON: NONE CLINICAL HISTORY: 33-year-old female pain. Pain RLQ x 1 day. G 3 P 2. Hx laparoscopy, ectopic pregnan cy, D and C, 2 C Sections. TECHNIQUE: Transvaginal (TV) . Color Doppler and spectral waveform analysis of the ovarian arteries and veins. Date of LMP: 12/17/2018 FINDINGS: EXAM MEASUREMENTS: Uterus: 8.4 x 5.8 x 4.4 cm Endometrial Stripe: 8.3 mm Right Ovary: 3.4 x 1.8 x 1.5 cm Left Ovary: 2.8 x 2.1 x 1.9 cm 1. Uterus: Anteverted. Hypoechoic area seen in cervix measurin.7 x 0.6 x 0.6 cm with posterior through transmission 2. Endometrium: wnl 3. Right Ovary: appears wnl 4. Left Ovary: Follicular changes present, largest measurin.4 x 1.3 x 1.2 cm Spectral, color and waveform doppler imaging shows good arterial and venous flow within the ovaries ; there is no evidence for ovarian torsion. 5. Bilateral Adnexa: Prominent vessels visualized right and left uterus suggestive of pelvic congesti on syndrome. 6. Posterior cul-de-sac: Fluid visualized measurin.6 x 1.4 x 0.8 cm IMPRESSION: 1. A debris-filled 7 mm cervical nabothian cyst incidentally noted. 2. No sonographic evidence for ovarian torsion on either side. 3. Trace cul-de-sac free fluid likely physiologic. 4. Prominent periuterine vessels may be physiologic but may also be seen in the setting of pelvic co ngestion syndrome. Clinically correlate.
--- NOTE | 2018-12-22 13:12 | US ---
EXAMINATION TYPE: US abdomen APPY DATE OF EXAM: 12/22/2018 COMPARISON: NONE CLINICAL HISTORY: 33-year-old female Pain. Pain RLQ x 1 day. TECHNIQUE: Targeted scanning of the right lower quadrant with graded compression. FINDINGS: APPENDIX Is the appendix seen in its entirety from the proximal cecum to distal end: No Is there inflammatory changes or free fluid present: No Scanned right lower quadrant. Appendix not seen with certainty. IMPRESSION: Unable to identify the appendix by ultrasound. Further clinical correlation will be needed.
[2018-12-22 14:00] VITALS: BP 98/56; PULSE 76; TEMP 98.1
== END 2018-12-22 13:59 | disposition home or self-care (01) ==
LOC: EC 09:31
DX: R10.31 Right lower quadrant pain (principal); R11.2 Nausea with vomiting, unspecified; N88.8 Other specified noninflammatory disorders of cervix uteri; F41.9 Anxiety disorder, unspecified; F32.9 Major depressive disorder, single episode, unspecified; F17.200 Nicotine dependence, unspecified, uncomplicated; Z79.899 Other long term (current) drug therapy; Z88.2 Allergy status to sulfonamides
CPT/HCPCS: 36415; 80053; 82150; 83690; 85025; 81001; 81025; 93975; 76705; 76830; 99284; 96374; 96375 ×2; 96361; J2405; J1885

== ENCOUNTER → 2020-06-20 | Outpatient (CLI) | payer BC ==
--- NOTE | 2020-06-20 14:31 | CT ---
EXAMINATION TYPE: CT sinus w con DATE OF EXAM: 06/20/2020 COMPARISON: None. HISTORY: Chronic sinus infections. COREY. Recurrent sinus infections for overt interpretation. CT DLP: 654.4 mGycm Automated exposure control for dose reduction was used. CONTRAST: CT scan of the facial bones is performed with IV Contrast, patient injected with 100 mL of Isovue 300 . TECHNIQUE: CT scan of the sinuses is performed without contrast, axial images are obtained, coronal r eformatted images are also reviewed. FINDINGS: Some patchy fluid in the anterior lateral right sphenoid sinus. Some mucosal thickening and patchy fluid in the adjacent posterior right ethmoid sinus. Hypoplastic or nonformed bilateral fron roberto sinuses The ostiomeatal complex is patent bilaterally on coronal image 21. Visualized portion of mastoid air cells show no abnormal opacification. The globes are intact bilate rally. No suspicious postcontrast enhancement. Visualized brain parenchyma unremarkable. IMPRESSION: Possible mild acute sinusitis involving the anterior right sphenoid sinus and posterior e thmoid sinus.
== END | disposition home or self-care (01) ==
LOC: RADCTMAIN 13:53
PROVIDERS: ATTEND Family Medicine
DX: J32.9 Chronic sinusitis, unspecified (principal); Z88.2 Allergy status to sulfonamides
CPT/HCPCS: 70487; Q9967

== ENCOUNTER → 2020-07-20 | Outpatient (CLI) | payer BC | END | disposition home or self-care (01) | LOC: LABWHC1 11:30 | PROVIDERS: ATTEND Otolaryngology | DX: J30.89 Other allergic rhinitis (principal) | CPT/HCPCS: 36415; 86001 ==

== ENCOUNTER 2021-02-06 16:57 | Emergency (ER) | payer BC ==
[2021-02-06 17:04] VITALS: TEMP 99.4
[2021-02-06] MEDS: fentaNYL (PF) 50 MCG/ML 2 ML AMP IVP STA (17:13)
[2021-02-06] MEDS: DIPH,PERTUS(ACELL)TETVAC-LF 0.5 ML VIAL IM ONE (17:28)
[2021-02-06 17:33] VITALS: BP 147/83; PULSE 105; RESP 16
--- NOTE | 2021-02-06 17:34 | XR ---
EXAMINATION TYPE: XR hand complete RT DATE OF EXAM: 02/06/2021 COMPARISON: NONE HISTORY: Trauma. Pain. TECHNIQUE: 4 views FINDINGS: There is amputation deformity of the little finger at the mid shaft of the middle phalanx. There is laceration deformity of the soft tissues at the distal phalanx of the ring finger. There is no evidence of a foreign body. IMPRESSION: Laceration deformity. Amputation deformity. No foreign body seen.
--- NOTE | 2021-02-06 18:11 | ED ---
Upper Extremity HPI - General Chief Complaint: Extremity Injury, Upper Stated Complaint: finger amputation Time Seen by Provider: 02/06/21 16:59 Source: patient Mode of arrival: EMS Limitations: no limitations - History of Present Illness Initial Comments: Patient presents with a traumatic amputation to the right small finger. She has also tissue avulsion to the right ring finger. Patient denies any other injuries. She has loss of function secondary to the fingertip interpretation. She has no chest pain or shortness of breath. She had no loss of conscious. Her tetanus immunization will require updating. - Related Data Home Medications Medication Instructions Recorded Confirmed Escitalopram [Lexapro] 10 mg PO DAILY 12/22/18 12/22/18 Ibuprofen [Motrin Ib] 600 mg PO Q6H PRN 12/22/18 12/22/18 Previous Rx's Medication Instructions Recorded Ondansetron Odt [Zofran ODT] 4 mg PO Q8HR PRN #20 tab 12/22/18 Cephalexin [Keflex] 500 mg PO Q6HR 1 Days #40 cap 02/06/21 HYDROcodone/APAP 5-325MG [[place] 1 - 2 tab PO Q6HR PRN #25 tab 02/06/21 5-325] Allergies Allergy/AdvReac Type Severity Reaction Status Date / Time No Known Allergies Allergy Verified 02/06/21 17:04 Review of Systems ROS Statement: Those systems with pertinent positive or pertinent negative responses have been documented in the HPI. ROS Other: All systems not noted in ROS Statement are negative. Past Medical History Past Medical History: No Reported History History of Any Multi-Drug Resistant Organisms: None Reported Past Surgical History: Section Additional Past Surgical History / Comment(s): laprocopy and cyctoscopy Past Anesthesia/Blood Transfusion Reactions: No Reported Reaction Past Psychological History: Anxiety, Depression Smoking Status: Current every day smoker Past Alcohol Use History: None Reported Past Drug Use History: None Reported - Past Family History Mother Family Medical History: No Reported History General Exam Limitations: no limitations Head exam: Present: atraumatic Eye exam: Present: normal appearance ENT exam: Present: normal exam Neck exam: Present: normal inspection Respiratory exam: Present: normal lung sounds bilaterally Cardiovascular Exam: Present: regular rate, normal rhythm GI/Abdominal exam: Absent: distended Extremities exam: Present: other (Right hand injury) Back exam: Present: normal inspection Neurological exam: Present: alert, oriented X3 Psychiatric exam: Present: normal affect Skin exam: Present: other (Tissue avulsion to the right fourth and fifth digits) Course Vital Signs 02/06/21 02/06/21 16:59 17:31 Temperature 99.4 F Pulse Rate 98 105 H Respiratory 22 16 Rate Blood Pressure 143/104 147/83 O2 Sat by Pulse 97 99 Oximetry Medical Decision Making - Medical Decision Making Patient presented with right small finger distal fingertip amputation. I spoke with the [facility], Dr. Mahoney, who spoke with hand surgery there. They have declined the case as the patient is not a candidate for reimplantation. I spoke with orthopedic surgery here, recommended antibiotics and outpatient follow-up tomorrow morning. Disposition Clinical Impression: Fingertip amputation Disposition: HOME SELF-CARE Condition: Good Instructions (If sedation given, give patient instructions): Finger Amputation (ED) Prescriptions: Cephalexin [Keflex] 500 mg PO Q6HR 1 Days #40 cap HYDROcodone/APAP 5-325MG [[place] 5-325] 1 - 2 tab PO Q6HR PRN #25 tab PRN Reason: Pain Is patient prescribed a controlled substance at d/c from ED?: No Referrals: Lizeztte Canales DO [Primary Care Provider] - 1-2 days Octavio Wright, PAC [PHYSICIAN DIRECTOR BANKING] - 1-2 days
== END 2021-02-06 18:48 | disposition home or self-care (01) ==
LOC: EC 16:57
DX: S68.126A Partial traumatic metacarpophalangeal amputation of right little finger, initial encounter (principal); F17.200 Nicotine dependence, unspecified, uncomplicated; F32.9 Major depressive disorder, single episode, unspecified; F41.9 Anxiety disorder, unspecified; Z79.1 Long term (current) use of non-steroidal anti-inflammatories (NSAID); X58.XXXA Exposure to other specified factors, initial encounter
CPT/HCPCS: 73130; 90715; 99284; 96365; 96375; 90471; J0690; J3010; 96374

== ENCOUNTER → 2021-02-09 | Day surgery (SDC) | payer BC ==
[2021-02-07 15:42] VITALS: BMI 23.4
[~2021-02-09] MED LIST: BUPIVACAINE (PF) 0.25% 30 ML VIAL SQ ONE; DEXAMETHASONE SOD PHOSPHATE 4 MG/ML 1 ML VIAL IV ONE; HYDROcodone/APAP 5-325MG 1 EACH TAB ONE; HYDROcodone/APAP 5-325MG 1 EACH TAB PO ONE; HYDROmorphone 0.5 MG/0.5 ML SYRINGE IVP ONE; HYDROmorphone 0.5 MG/0.5 ML SYRINGE IVP PRN; KETOROLAC 15 MG/ML 1 ML VIAL ONE; LACTATED RINGERS 1,000 ML IV SCH; LIDOCAINE 1% (10MG/ML) FOR IV START INTRADERMA ONE; LIDOCAINE 1% INJ 10MG/ML (20 ML MDV) ONE; MIDAZOLAM 2 MG/2 ML VIAL IV PRN; MIDAZOLAM 2 MG/2 ML VIAL ONE; ONDANSETRON 4 MG/2 ML VIAL IVP ONE; PROPOFOL 10 MG/ML 20 ML VIAL IV ONE; SCOPOLAMINE 1.5MG/72HR PATCH TRANSDERM ONE; fentaNYL (PF) 50 MCG/ML 2 ML AMP IV ONE; fentaNYL (PF) 50 MCG/ML 2 ML AMP ONE
--- NOTE | 2021-02-09 13:38 | P.HPOR ---
History of Present Illness H&P Date: 02/09/21 Chief Complaint: R SMF amputation 35 yo female presented to ED after circular saw injury to her RH. She partially amputated her small finger at the level of the middle phalynx leaving about 1.5 cm of middle phalynx. She presented to office then after treatment with I&D in ER for eval. We discussed surgical options she also has injuries to her RF and MF which we will address. she c/o pain in the finger with burning. No other injury noted. The remainder of the hand shows good motor and sensation. Review of Systems Constitutional: Reports as per HPI Past Medical History Past Medical History: No Reported History Additional Past Medical History / Comment(s): traumatic injury to 3rd,4th,5th digits rt hand with circular saw History of Any Multi-Drug Resistant Organisms: None Reported Past Surgical History: Section Additional Past Surgical History / Comment(s): laparoscopy and cyctoscopy,wisdom teeth removal Past Anesthesia/Blood Transfusion Reactions: No Reported Reaction, Family History of Problems w/ Anesthesia Additional Past Anesthesia/Blood Transfusion Reaction / Comment(s): grandmother PONV and takes a while to wake up Smoking Status: Current every day smoker, Vaper - Past Family History Mother Family Medical History: No Reported History Medications and Allergies Home Medications Medication Instructions Recorded Confirmed Type Escitalopram [Lexapro] 20 mg PO QAM 12/22/18 02/09/21 History Cephalexin [Keflex] 500 mg PO Q6HR 1 Days #40 cap 02/06/21 02/09/21 Rx HYDROcodone/APAP 5-325MG [[place] 1 - 2 tab PO Q6HR PRN #25 tab 02/06/21 02/09/21 Rx 5-325] Vitamin C/Biotin [Hair, Skin and 1 tab PO HS 02/07/21 02/09/21 History Nails] traZODone HCL 50 mg PO HS 02/07/21 02/09/21 History Allergies Allergy/AdvReac Type Severity Reaction Status Date / Time No Known Allergies Allergy Verified 02/09/21 12:19 Physical Examination Osteopathic Statement: *. No significant issues noted on an osteopathic structural exam other than those noted in the History and Physical/Consult. R Hand shows amputation of the small finger at the level of the middle phalynx leaving 1.5 cm of middle phalynx. The joint appers intact still. There is partial to full thickness skin loss with a palmar flap that is viable at this time. There is nailbed injuries to the RF and MF on the R as well with partial to full thickness loss of skin over the radial portion of the paranyochial fold of the RF. No fractures noted. SILT M/R/U nerves of all fingers except amputated small finger. 2/4 dp/pt. Cap refill brisk <2 sec. compartments soft and compressive. Results XR shows small finger amputation at the level of the middle phalynx with approx 1.5 cm of middle phalynx still intact. No other fractures noted. Assessment and Plan Assessment: 1. RSMF amputation 2. RRF nailbed injury 3. RMF nailbed injury 4. S/P circular saw injury Plan: We discussed the risks and benefits of surgery including risk of bleeding, infection damage to tissues, risk of anesthesia up to and including she was willing to assume these risks and all the risk of surgery. There is a risk of the flap not taking hold and the need for reoperation and further amputation. We will take every percaution not to have this happen and she understood and was OK with this. I spoke with her, her mother and her in the pre op area and they were all on board with the surgery and what needed to be done and were all comfortable with the risks. NPO confirmed Abx preop OR today for revision amputatin and nailbed repairs.
[2021-02-09 15:09] VITALS: TEMP 97.2
[2021-02-09 15:49] VITALS: RESP 17
[2021-02-09 16:16] VITALS: BP 113/76; PULSE 88
--- NOTE | 2021-02-09 16:18 | XR ---
EXAMINATION TYPE: XR hand complete RT DATE OF EXAM: 02/09/2021 COMPARISON: None HISTORY: Revised amputation TECHNIQUE: 2 view fluoroscopic imaging FINDINGS: There is a pin through the resected middle phalanx into the proximal phalanx. IMPRESSION: 1. Amputation of the middle phalanx fifth digit. Pain is across the proximal interphalangeal joint s pace.
--- NOTE | 2021-02-09 16:51 | FL ---
Fluoroscopy INDICATION: Pain FINDINGS: Fluoroscopy time: 10 seconds. Images obtained: 0. IMPRESSIONS: 1. Documentation of fluoroscopy.
--- NOTE | 2021-02-09 18:54 | P.OP ---
Date of Procedure: 02/09/21 Preoperative Diagnosis: 1.right small finger amputation proximal shaft middle phalanx complete 2. Right ring finger complex nailbed laceration 3. Right middle finger complex nailbed laceration 4. Right ring finger partial thickness skin loss radial aspect along the paronychial fold 5. Status post circular saw injury Postoperative Diagnosis: 1.right small finger amputation proximal shaft middle phalanx complete 2. Right ring finger complex nailbed laceration 3. Right middle finger complex nailbed laceration 4. Right ring finger partial thickness skin loss radial aspect along the paronychial fold 5. Status post circular saw injury Procedure(s) Performed: 1. Revision amputation right small finger with palmar flap advancement and complex closure 2 centimeters by 2 x 2 2. Complex nailbed repair right ring finger and right middle finger 3. Irrigation debridement right small finger ring finger and middle finger skin soft tissue and bone using the following -[place] blade knife was used for soft tissue dissection as well as removal of necrotic fat and skin skin knife was also used for this -Iris scissors used to debulk necrotic fatty tissue as well as trim edges of the eponychial and paronychial folds -Ronjair was used to shorten the proximal phalanx for coverage as well as debride the bone Implants: one K wire 0.54 Anesthesia: MAC Surgeon: David Petit Estimated Blood Loss (ml): 10 IV fluids (ml): 500 Urine output (ml): 0 Pathology: none sent Condition: stable Disposition: PACU Indications for Procedure: 35-year-old [id number] female sustained a circular saw injury to her right hand amputating her right small finger just above the PIP joint as well as injuring the nailbeds of her ring finger and middle finger. She presented the emergency department originally of consult with [facility] hand team stated that no reimplantation could be done due to the degree of damage and the area of amputation as well as the condition of the amputated limb. She was seen in emergency department she irrigated and debrided and she follow-up in office once in office for follow-up we discussed revision amputation of this finger and she agreed also discussed nail bed repair and she agreed. She was seen preoperatively all preoperative protocols followed to give him antibiotics appropriately marked and was ready for surgery I discussed with her family preoperatively as well risks and benefits of surgery including risks of bleeding infectionjoint tissue was that the graft does not take and that she has to have a revision amputation again and they understood this. They are comfortable with this and comfortable to proceed Description of Procedure: The patient was seen and examined in the preoperative area. All preoperative protocols were followed. Informed consent was obtained risks and benefits of the procedure were discussed at length. Risks including bleeding infection damage to the surrounding tissue and risk of reoperation were discussed with the patient. Risk of anesthesia up to and including was a discussed with the patient. These are outlined in the risk reviewed. They were willing to accept these risks and all of the risks of surgery. The patient was given a weight- based dose of antibiotics in the form ofAncef 2 g IVPB. The patient was seen and evaluated by the anesthesia team who deemed them fit for surgery. The site was marked, the patient was willing to proceed with the procedure. The patient was transferred to the operative suite by the Department of anesthesia. There were then drifted off to sleep by the department of anesthesia and LMA with local anesthetic anesthesia was used. Once adequate anesthesia had been obtained the patient was carefully transferred to the operative bed. All bony prominences were padded accordingly. SCDs were placed on the nonoperative lower extremities. Arms were well padded. right upper extremity was exposed and was placed on arm board tourniquet was placed on the patient's right upper arm and well-padded 10:15 was placed around this. Preoperative briefing was done with the operative team and everyone was ready for the procedure to start. The patients right arm was then prepped and draped in the normal sterile fashion. Timeout was then performed and all parties in agreement with the procedure to be performed. we proceeded with irrigation and debridement of the amputated finger as well as removal of the nail plates of the middle finger and ring finger and irrigation debridement of the nailbeds in this area we used a [place] blade to loosen the tissue around the bone of the right small finger that was left of the middle phalanx which measured about 1.5-1.7 cm those remaining. We debrided the bone in this area and smoothed it over with a rongeur and a rasp. We are able to debulk some of the palmar fats in the flap but this flap was able to very nicely, up over the bone and create excellent soft tissue coverage over the bone in this area. We debrided having cleaned the skin edges of any necrotic or seemingly department necrotic tissue the PIP joint was completely intact and there was 0 violation of it and so was decided at this time to maintain this joint as it maintained a fair amount of normal tissue for the patient at length and this was important to her however the PIP joint will be nonfunctional secondary to the tendons being severed in this area insert was decided to place an intramedullary pin from the remaining portion distally of the middle phalanx into the proximal phalanx through the PIP joint to hold it in a stable position to create a bar for the patient to use as a grasping portion. This was placed in AP and lateral fluoroscopy was in good position we then trimmed the wire so that it was underneath the bone and not sticking out we rasped the end of the bone so that it was smooth. We then were able to flap up the palmar piece of skin that was in a excellent position to cover this area loose nylon as well as chromic sutures 4-0 were placed in this area to allow for swelling and to hold it in a good positionthere is excellent bone coverage in this area with good soft tissue envelope and flap and good asthetic. We then turned our attention to the ring finger where we had removed the nail plate. There was a complex laceration to the nail bed in the steril matrix on the radial aspect along with partrial thickness skin loss of the radial distal tip and paronychial folds. This was debrided and the edges freshened. We then placed two 5-0 chromic stitches to repair the nailbed and paronychial fold. We then debrided and repaired the middle finger in similar fashion where there were two complex lacerations to the steril matrix. Germinal matrix of RF and MF were intact. We then irrigated the wounds with NSS. Fake nails were fashioned and fit to the RF and MF to keep open the eponychial folds. The wounds were dressed with steril bacitracin adaptic 4x4, kerlix fluffs and overwrapped with an abel wrap. The patient was then transferred back to their hospital bed. There were awakened by department of anesthesia having tolerated the procedure very well with no complications. The patient was then transported to the postoperative care unit in stable condition.
== END | disposition home or self-care (01) ==
LOC: OR 11:43
PROVIDERS: ATTEND Orthopaedic Surgery
DX: S68.126A Partial traumatic metacarpophalangeal amputation of right little finger, initial encounter (principal); S61.312A Laceration without foreign body of right middle finger with damage to nail, initial encounter; S61.214A Laceration without foreign body of right ring finger without damage to nail, initial encounter; W31.2XXA Contact with powered woodworking and forming machines, initial encounter; Z98.891 History of uterine scar from previous surgery; Z98.890 Other specified postprocedural states; F17.290 Nicotine dependence, other tobacco product, uncomplicated; Z79.899 Other long term (current) drug therapy
CPT/HCPCS: 26952; 11762; 14040; 81025; 73130; J2250; J1100; J0690; J2405; J2001; J3010; J1885; J2704; J1170

== ENCOUNTER → 2021-10-29 | Outpatient (CLI) | payer BC ==
--- NOTE | 2021-10-29 11:50 | CT ---
EXAMINATION TYPE: CT sinus wo con DATE OF EXAM: 10/29/2021 COMPARISON: CT dated 06/20/2020 HISTORY: Sinus pressure and headaches CT DLP: 686.50 mGycm. Automated Exposure Control for Dose Reduction was Utilized. TECHNIQUE: CT scan of the sinuses is performed without contrast, axial images are obtained, coronal r eformatted images are also reviewed. FINDINGS: Slightly deviated bony nasal septum convex to the left side with a tiny bony spur. Unremarkable middl e and inferior turbinates. No significant mucosal thickening of the nasal fossa. Circumferential muco kavin thickening of the left maxillary sinus with obstructed left infundibulum by mucosal thickening. P atent right infundibulum no significant mucosal thickening of the right maxillary sinus. Mucosal thickening right posterior ethmoid air cells. Unremarkable remainder of the ethmoid air cells and sphenoid sinus. Patent sphenoethmoidal recesses and frontal ethmoidal recesses. Non-pneumatized frontal sinus. Clear mastoid air cells. Unremarkable visualized portion of the brain and orbits. Subc entimeter bilateral upper cervical lymph nodes, nonspecific. IMPRESSION: Mucosal thickening of the left maxillary sinus and its infundibulum with mild mucosal thi ckening of the right posterior ethmoid air cells. Other incidental findings as described above.
== END | disposition home or self-care (01) ==
LOC: RADCTMAIN 09:28
PROVIDERS: ATTEND Otolaryngology
DX: J34.89 Other specified disorders of nose and nasal sinuses (principal)
CPT/HCPCS: 70486

== ENCOUNTER 2021-12-26 08:01 | Day surgery (SDC) | payer BC ==
[~2021-12-26 08:01] MED LIST changes: -BUPIVACAINE (PF) 0.25% 30 ML VIAL SQ ONE; -DEXAMETHASONE SOD PHOSPHATE 4 MG/ML 1 ML VIAL IV ONE; +DEXAMETHASONE SOD PHOSPHATE 4 MG/ML 1 ML VIAL IV PRN; +FAMOTIDINE 20 MG/2 ML VIAL IV PRN; -HYDROcodone/APAP 5-325MG 1 EACH TAB ONE; -HYDROcodone/APAP 5-325MG 1 EACH TAB PO ONE; -HYDROmorphone 0.5 MG/0.5 ML SYRINGE IVP ONE; -HYDROmorphone 0.5 MG/0.5 ML SYRINGE IVP PRN; -KETOROLAC 15 MG/ML 1 ML VIAL ONE; -LIDOCAINE 1% (10MG/ML) FOR IV START INTRADERMA ONE; +LIDOCAINE 1% (10MG/ML) FOR IV START INTRADERMA PRN; -LIDOCAINE 1% INJ 10MG/ML (20 ML MDV) ONE; -MIDAZOLAM 2 MG/2 ML VIAL IV PRN; -MIDAZOLAM 2 MG/2 ML VIAL ONE; -ONDANSETRON 4 MG/2 ML VIAL IVP ONE; +ONDANSETRON 4 MG/2 ML VIAL IVP PRN; -PROPOFOL 10 MG/ML 20 ML VIAL IV ONE; -SCOPOLAMINE 1.5MG/72HR PATCH TRANSDERM ONE; -fentaNYL (PF) 50 MCG/ML 2 ML AMP IV ONE; -fentaNYL (PF) 50 MCG/ML 2 ML AMP ONE
[2021-12-26] MEDS: OXYMETAZOLINE 0.05% NASL SPRAY 1 SPRAY BOTTLE EA NOSTRIL PRN ×5 (09:00→09:20)
[2021-12-26] MEDS ORDERED: MIDAZOLAM 2 MG/2 ML VIAL IV ONE (09:33)
[2021-12-26] MEDS ORDERED: PROPOFOL 10 MG/ML 20 ML VIAL IV ONE (10:04)
[2021-12-26] MEDS ORDERED: MIDAZOLAM 2 MG/2 ML VIAL ONE (10:04)
[2021-12-26] MEDS ORDERED: LIDOCAINE 2% INJ 20 MG/ML (2 ML VIAL) ONE (10:04)
[2021-12-26] MEDS ORDERED: ePHEDrine 50 MG/ML 1 ML VIAL ONE (10:04)
[2021-12-26] MEDS ORDERED: SUCCINYLCHOLINE CHLORIDE 100 MG/5 ML SYR IV ONE (10:04)
[2021-12-26] MEDS ORDERED: fentaNYL (PF) 50 MCG/ML 2 ML AMP ONE (10:04)
[2021-12-26] MEDS ORDERED: LIDOCAINE 1%-EPI 1:100,000 20 ML VIAL SUBMUCOSAL ONE (10:19)
[2021-12-26] MEDS ORDERED: BACITRACIN ZINC 500 UNIT/GM OINT 28.4 GM TUBE TOPICAL ONE ×2 (10:27→10:56)
--- NOTE | 2021-12-26 11:07 | P.OP ---
Date of Procedure: 12/26/21 Preoperative Diagnosis: Deviated nasal septum Inferior turbinate hypertrophy Chronic sinusitis Postoperative Diagnosis: Same Procedure(s) Performed: Septoplasty Outfractured and submucous resection of the inferior turbinates Bilateral endoscopic sinus surgery including bilateral maxillary antrostomy and right anterior and posterior ethmoidectomy Anesthesia: CONSUELO Surgeon: Rodrick Florentino Estimated Blood Loss (ml): 5 Pathology: other (Nasal septal bone and cartilage and sinus contents) Condition: stable Disposition: PACU Indications for Procedure: This is a 36-year-old white female who has developed was with chronic and recurrent sinusitis as well as chronic nasal airway obstruction bilaterally Operative Findings: Nasal septum deviated to the right anteriorly to the left posteriorly to turbinate hypertrophy bilaterally. Obstruction of the bilateral maxillary ostia mild mucosal thickening in the maxillary sinuses and moderate mucosal thickening throughout the anterior and posterior ethmoid air cells on the right Description of Procedure: The patient was brought into the operative suite and placed in a supine position. The patient underwent induction of general anesthesia with oral endotracheal intubation without difficulty. The patient was prepped and draped in the usual aseptic fashion with the orbits in the operating field for monitoring to the case and the computed tomography scan was on the computer scr een for review throughout the case. 1% lidocaine with 1 :100,000 epinephrine was infused submucosally into both sides of the nasal septum as well as the lateral nasal wall and anterior tips of the middle turbinates. While this was taking vasoconstrictive effect the inferior turbinates were infractured with [place] elevator and partial submucous resection of the inferior turbinates was performed with a portion of the submucosal soft tissue and the inferior turbinate bone removed with Coblation device. The inferior turbinates were then outfractured with the [place] elevator. A left hemitransfixion incision was then made with the mucoperichondrial and mucoperiosteal flap on the left elevated. The bony cartilaginous junction was disarticulated and the mucoperiosteal flap on the right was elevated. Bony nasal septal deformities were removed with Marvin forceps and an inferior cartilaginous strip was removed leaving a full 1.5 cm caudal strut. Checking intranasally this corrected the nasoseptal deformities and the hemitransfixion incision was closed with a running 4-0 chromic suture. Full 0 endoscopic examination is performed bilaterally. Beginning on the left, the middle turbinate was medialized. The maxillary ostium was located with a ballpoint probe and an infundibulotomy was performed followed by uncinectomy. The maxillary antrostomy was enlarged at the expense of the an terior and posterior fontanelle taking care anteriorly not to injure the lacrimal bone. The maxillary sinus was evaluated with 30 and 70 endoscope- once this was completed on the left attention was turned to the right where the maxillary sinus surgery was performed as it was on the left. Right Anterior and posterior ethmoidectomy were then performed from anterior to posterior to the level of the skull base. The roof of the anterior ethmoid air cells were then cleaned from posterior to anterior using up-biting [place] forcep [Nasopore nasal dressing was placed in the middle meatus bilaterally under direct visualization]. Bilateral Myles airway splints coated with bacitracin ointment were placed and sutured transseptally with a 4-0 nylon suture. The patient was suctioned in oral gastric fashion and was allowed to emerge from general anesthesia having tolerated procedure well and was extubated in the operating suite and transferred to the postoperative recovery area in satisfact ory condition.
[2021-12-26 11:27] VITALS: TEMP 97
[2021-12-26] MEDS: fentaNYL (PF) 50 MCG/ML 2 ML AMP IV PRN ×3 (11:35→11:58)
[2021-12-26] MEDS ORDERED: SODIUM CHLORIDE 0.9% 1,000 ML IV ONE ×2 (11:41)
[2021-12-26] MEDS ORDERED: HYDROcodone/APAP 5-325MG 1 EACH TAB PO ONE (12:32)
[2021-12-26] MEDS ORDERED: HYDROcodone/APAP 5-325MG 1 EACH TAB ONE (12:33)
[2021-12-26 13:00] VITALS: BP 131/83; PULSE 74; RESP 16
== END 2021-12-26 13:10 | disposition home or self-care (01) ==
LOC: OR 08:01
PROVIDERS: ATTEND Otolaryngology
DX: J34.2 Deviated nasal septum (principal); J32.9 Chronic sinusitis, unspecified; J34.3 Hypertrophy of nasal turbinates; F32.A Depression, unspecified; F17.200 Nicotine dependence, unspecified, uncomplicated; Z79.899 Other long term (current) drug therapy
CPT/HCPCS: 30520; 31256; 31257; 81025; 88305; 88300; J2250; J2405; J0690; J3010; J0330; J2704; J2001

== ENCOUNTER 2022-01-29 06:20 | Day surgery (SDC) | payer BC ==
[2022-01-25 08:39] VITALS: BMI 21.7
[~2022-01-29 06:20] MED LIST changes: +DEXAMETHASONE SOD PHOSPHATE 4 MG/ML 1 ML VIAL IV ONE; -DEXAMETHASONE SOD PHOSPHATE 4 MG/ML 1 ML VIAL IV PRN; -FAMOTIDINE 20 MG/2 ML VIAL IV PRN; +HYDROmorphone 0.5 MG/0.5 ML SYRINGE IVP PRN; +METOCLOPRAMIDE 5 MG/ML 2 ML VIAL IVP PRN; +ONDANSETRON 4 MG/2 ML VIAL IVP ONE; -ONDANSETRON 4 MG/2 ML VIAL IVP PRN
--- NOTE | 2022-01-29 06:31 | P.HPOR ---
History of Present Illness H&P Date: 01/29/22 Chief Complaint: Irritable hardware 36 yo female underwent revision amputation of her Right small finger with pin stabilization back on 02/10/21 after an accident with a saw. She has healed very well from this and has been doing well. Lately the pin is causing her issues an d she can feel it and it is bothering her and she would like it out. She states no f/c/sob/cp. She states she is otherwise doing well and has no complaints. She has done very well with this given the severity of the injury. Review of Systems 14 points review of systems completed and as stated in HPI, all other systems reviewed are negative. Constitutional: Reports as per HPI Past Medical History Past Medical History: Fibromyalgia Additional Past Medical History / Comment(s): DAITH PIERCING TO RELIEVE FIBROMYALGIA PAIN. History of Any Multi-Drug Resistant Organisms: None Reported Past Surgical History: Section, Tubal Ligation Additional Past Surgical History / Comment(s): Laparoscopy and cyctoscopy, wisdom teeth removed, 02/09/21 - traumatic injury to 3rd, 4th, 5th digits right hand with circular saw, partial amputaion right baby finger, sinus surgery. Past Anesthesia/Blood Transfusion Reactions: Postoperative Nausea & Vomiting (PONV) Additional Past Anesthesia/Blood Transfusion Reaction / Comment(s): Grandmother PONV and takes a while to wake up. Past Psychological History: Anxiety, Depression Smoking Status: Vaper Past Alcohol Use History: Rare Additional Past Alcohol Use History / Comment(s): Started smoking at age 19 on and off, currently vaping. Past Drug Use History: None Reported - Past Family History Mother Family Medical History: No Reported History Medications and Allergies Home Medications Medication Instructions Recorded Confirmed Type Escitalopram [Lexapro] 20 mg PO QAM 12/22/18 01/25/22 History Vitamin C/Biotin [Hair, Skin and 1 tab PO HS 02/07/21 01/25/22 History Nails] Baclofen [Lioresal] 20 mg PO HS 12/24/21 01/25/22 History Montelukast [Singulair] 10 mg PO HS 12/24/21 01/25/22 History Allergies Allergy/AdvReac Type Severity Reaction Status Date / Time No Known Allergies Allergy Verified 01/25/22 08:39 Physical Examination Osteopathic Statement: *. No significant issues noted on an osteopathic structural exam other than those noted in the History and Physical/Consult. Patient is alert and oriented 3 appears well-nourished well-hydrated is in no acute distress. They do not appear septic. Mild tenderness to palpation the right small finger at the distal tip where the pin is starting to erode skin Lower extremities with [5]/5 strength in all major muscle groups Upper extremities show [5]/5 strength in all major muscle groups. Motor and sensation intact to median radial and ulnar nerves distally [2]/4DTR all UE and LE b/l Cranial nerves II through XII are grossly intact. There is FROM that is painless of the b/l UE and LE in all major joints [w/o pain]. They are intact to light touch sensation in L2 to S1 nerve distribution. Patient has palpable dorsalis pedis was posterior tibial pulses. Compartments are soft and compressible. Capillary refill brisk and less than 2 seconds in all fingertips Results X-rays from office demonstrate status post revision amputation right small finger at the level of the middle phalanx with pin stabilization of the PIP region and PIP joint. There is been some bony resolution of the middle phalanx causing uncovering of the pin which is likely the reason for her irritation. At this point the fractures and the joint is healed and the patient can be removed likely. No other complicating processes seen Assessment and Plan Assessment: 36-year-old female status post revision amputation right small finger with irritable hardware Plan: Orthopedic Surgery Risk Review Timmy Sheldon is a 36-year-old female presenting for evaluation of right small finger pain, and irritability of hardware status post revision amputation 02/09/2021. It was my pleasure to have seen and examined Timmy. In our visit today we have had a chance to go over subjective complaints, physical examination findings and treatments including the natural course history without intervention and various interventional options. Her imaging demonstrates postsurgical changes with no complicating process likely irritable hardware. On physical exam, Timmy demonstrates pain with palpation around the distal tip of her amputation where the pin is irritating her, which is NV intact at this time. I have explained to the patient that this fracture needs stabilization. Based on the patients imaging, physical exam, and the rapid progression and disabling nature of her symptoms, at this time I recommend surgery in the form or a: Removal of hardware right small finger I discussed the risk and benefits of this procedure at length with Timmy. Questions were invited and answered, and the patient wishes to proceed as outlined below. Currently, I am recommendin. Removal of hardware right small finger 2. Review of surgical risks and benefits as well as an educational packet on the proposed surgical procedure. Risks: All surgical procedures come with inherent risks, including those related to positioning, anesthesia, intraoperative findings, and postoperative complications. It is important to understand that surgery does not come with any guarantee of a successful outcome as complications and adverse events are always possible. The patient was given a handout discussing the surgical procedure and risks associated with the intervention, both of which were discussed with the patient. These risks include but are not limited to the following: - Experiencing same, different or even worse symptoms compared to before surgery. - Requiring further surgery or other forms of treatment presently or at some time in the future . - On an extreme but fortunately relatively rare basis severe complication such as blindness, stroke, heart attack, temporary and/or permanent nerve injury, paralysis, coma, or may occur, sometimes without known explanation. - Surgical complications may include but are not limited to risk of infection, fluid accumulation in the surgical dissection site, including a seroma or hematoma, that requires additional surgery, wound drainage, bleeding, new numbness or weakness, vision changes/loss, spinal fluid leakage, non-healing and/or infected incision, headaches, difficulty or inability to swallow, hoarseness, hemopneumothorax, pneumothorax, injury to nerves, spinal cord, blood vessels, lymphatics or other vital organs (i.e., bowel injury, injury to the great vessels); heterotopic bone formation; complications related to the hardware such as screws, rods, including misplaced hardware, device failure, hardware fracture/breakage, or hardware loosening; retained surgical instrumentations or devices and the need for further surgery. - Medical risks of the planned surgery include but are not limited to generalized Infections to the whole body or local areas outside of the surgical site (sepsis), heart attack, bleeding, anaphylaxis, meningitis, seizure, epilepsy, hearing loss, burn rojas, laceration of the head or other areas of the body, bruising, hypersensitivity of the skin, bladder over distension; allergic reaction; shoulder injury related to positioning; fat, blood and air clots to other areas of the body like heart, lungs, brain; failure of internal organs such as lungs, kidneys, liver and excessive bleeding. If blood transfusions are necessary, note that transfusions may cause intolerance reactions such as anaphylaxis or other complex reactions. Despite best efforts, the results of surgery might not heal in terms of bone, soft tissues such as skin, fascia, ligaments, and joints. [facility] has multiple operating rooms with single and overlapping rooms running daily. They currently function under the required guidelines as produced by the [facility] Finance Committee with regards to the overlapping rooms and will continue to comply with changes to this policy as they occur. The requirements include and are complied with as follows: (1) the critical portions of the overlapping rooms will not occur at the same time, (2) the attending physician will be physically present during the critical portions of the procedure and immediately available during the entire case, and (3) a back-up attending is designated should the primary attending not be immediately available. The patient has had a chance to review all the listed information, has been given print outs detailing this information, and has had all his/her questions answered to their satisfaction. It was my pleasure to have seen and examined Timmy Sheldon. In our visit today we have had a chance to go over my understanding of our patient's current condition, the natural course history without intervention and various interventional options. Questions were invited and answered, and the patient wishes to proceed as outlined above. I have seen and examined the patient for 25 minutes and we have spent more than 50% of the time in repeat and detailed counseling about the patient's condition, its natural course history with out and as much as can be predicted with surgery and re-review of various surgical treatment options. In conclusion, Timmy Sheldon requested we proceed with the above suggested surgery and are willing to accept risks and limitations of the suggested surgery as nature of the disease process and our best attempts at treatment for the condition. Thank you again for allowing us to be part of your patient's care. Please don't hesitate to contact me if you have any further questions. Signed and authenticated by: David Petit DO [facility] [address] [facility], [place], [address] [address]
[2022-01-29 06:59] VITALS: RESP 16
[2022-01-29] MEDS ORDERED: BUPIVACAINE (PF) 0.25% 30 ML VIAL SQ ONE ×3 (07:22→07:47)
[2022-01-29] MEDS ORDERED: MIDAZOLAM 2 MG/2 ML VIAL ONE (07:27)
[2022-01-29] MEDS ORDERED: PROPOFOL 10 MG/ML 20 ML VIAL IV ONE (07:27)
[2022-01-29] MEDS ORDERED: LIDOCAINE 2% INJ 20 MG/ML (2 ML VIAL) ONE (07:27)
[2022-01-29] MEDS ORDERED: NALOXONE 0.4 MG/ML 1 ML VIAL ONE (07:27)
[2022-01-29] MEDS ORDERED: fentaNYL (PF) 50 MCG/ML 2 ML AMP ONE (07:27)
[2022-01-29 08:10] VITALS: TEMP 96.4
--- NOTE | 2022-01-29 08:16 | P.OP ---
Date of Procedure: 01/29/22 Preoperative Diagnosis: 1. Irritable hardware Right small finger Postoperative Diagnosis: 1. Irritable hardware Right small finger Procedure(s) Performed: 1. Removal of hardware right small finger 2. Irrigation and debridement Right small finger skin and soft tissue using curette, knife, and rongure. 3. Interpretion of intraoperative flouroscopy <1 hr Implants: none removal of pin Anesthesia: MAC Surgeon: David Petit Estimated Blood Loss (ml): 2 IV fluids (ml): 400 Urine output (ml): 0 Pathology: none sent Condition: stable Disposition: PACU Indications for Procedure: 36 yo female had revision amputation and stabilization of her right small finger 02/19. She did very well but hardware became irritable over the past few months. She has noticed it is pushing on her skin and bothering her. She would like it out. We discussed options as well as risks and benefits. She agreed and would like to continue with surgical removal of pin. Description of Procedure: The patient was seen and examined in the preoperative area. All preoperative protocols were followed. Informed consent was obtained risks and benefits of the procedure were discussed at length. Risks including bleeding infection damage to the surrounding tissue and risk of reoperation were discussed with the patient. Risk of anesthesia up to and including was a discussed with the patient. These are outlined in the risk reviewed. They were willing to accept these risks and all of the risks of surgery. The patient was given a weight- based dose of antibiotics in the form of 2 g Ancef. The patient was seen and evaluated by the anesthesia team who deemed them fit for surgery. The site was marked, the patient was willing to proceed with the procedure. The patient was transferred to the operative suite by the Department of anesthesia. There were then drifted off to sleep by the department of anesthesia and L December with local finger block using cortical percent Marcaine without epinephrine anesthesia was used. Once adequate anesthesia had been obtained the patient was carefully transferred to the operative bed. All bony prominences were padded accordingly. SCDs were placed on the nonoperative lower extremities. Arms were well padded. right arm and hand were exposed placed on a arm board well-padded Preoperative briefing was done with the operative team and everyone was ready for the procedure to start. The patients right arm was then prepped and draped in the normal sterile fashion. Timeout was then performed and all parties in agreement with the procedure to be performed. Mini C-arm image was taken to identify the right small finger and the pin. Small skin sherif was then made distally over the pin which was palpable. Tenotomies were used to dissect circumferentially around the pin. Needle-nose pliers was then used to grasp the pin and it was removed with ease. We then debrided the area soft tissue and skin with a knife and curet to remove any of the scar tissue causing her any issues around this area as well as around her to remove any sharp bony fragments. were then copiously irrigated the wound with normal sterile saline. The wound was then closed with 4-0 chromic the wound edges approximated very well. It was then cleaned and dressed sterilely with Adaptic 4 x 4's and Delbert wrap. Final mini C-arm image shows hardware is removed From right small finger Without incident. The patient was then transferred back to their hospital bed. There were awakened by department of anesthesia having tolerated the procedure very well with no complications. The patient was then transported to the postoperative care unit in stable condition.
[2022-01-29 09:02] VITALS: BP 117/71; PULSE 60
== END 2022-01-29 09:18 | disposition home or self-care (01) ==
LOC: OR 06:20
PROVIDERS: ATTEND Orthopaedic Surgery
DX: T84.84XA Pain due to internal orthopedic prosthetic devices, implants and grafts, initial encounter (principal); M79.7 Fibromyalgia; Z98.890 Other specified postprocedural states; Z98.891 History of uterine scar from previous surgery; Z98.51 Tubal ligation status; Z79.899 Other long term (current) drug therapy; F17.290 Nicotine dependence, other tobacco product, uncomplicated
CPT/HCPCS: 81025; 26320; J2250; J1100; J2310; J0690; J2405; J3010; J2704; J2001

== ENCOUNTER → 2023-12-25 | Outpatient (CLI) | payer BC ==
--- NOTE | 2023-12-31 18:08 | CT ---
EXAMINATION TYPE: CT abdomen w con CT DLP: 275.4 mGycm, Automated exposure control for dose reduction was used. DATE OF EXAM: 12/25/2023 1:59 PM COMPARISON: CT abdomen pelvis most recent from CLINICAL INDICATION:Female, 38 years old with history of N28.1 CYST OF KIDNEY, ACQUIRED; KIDNEY CYST TECHNIQUE: Axial CT abdomen w con;Sagittal and coronal reformats were created on a separate workstat ion. Contrast used:100 mL of Isovue 300 with IV Contrast, (none if empty) Oral contrast used: with Oral Contrast (none if empty) FINDINGS: LOWER CHEST: Unremarkable ABDOMEN LIVER: Unremarkable GALLBLADDER AND BILE DUCTS: Unremarkable. PANCREAS: Unremarkable. SPLEEN: Unremarkable. ADRENAL GLANDS: Unremarkable. KIDNEYS AND URETERS: No evidence of hydronephrosis or renal calculus. The ureters are unremarkable. A simple appearing 4.4 cm cyst is seen in the lower pole of the right kidney. Simple cysts do not require follow-up. ABDOMEN - STOMACH AND BOWEL: Stomach and duodenum are unremarkable. No evidence of bowel obstruction. PERITONEUM/RETROPERITONEUM: No evidence of pneumoperitoneum or free fluid. VASCULATURE: No evidence of aortic aneurysm. MUSCULOSKELETAL: No acute osseous abnormalities LYMPH NODES: No gross evidence for lymphadenopathy. SOFT TISSUE/ABDOMINAL WALL: Unremarkable IMPRESSION: 1. Simple lower pole right kidney cyst requires no follow-up.
== END | disposition home or self-care (01) ==
LOC: RADCTMAIN 13:00
PROVIDERS: ATTEND Family Medicine
DX: N28.1 Cyst of kidney, acquired (principal)
CPT/HCPCS: 74160; Q9967